=== PATIENT | female | born 1985 | race Caucasian/White ===

== ENCOUNTER 2020-06-15 10:04 | Outpatient (REF) | payer OTHER, SELFPAY | END 2020-06-15 10:05 | disposition home or self-care (01) | LOC: HO.LAB 10:04 | PROVIDERS: PCP Internal Medicine; Visit Provider Internal Medicine | DX: Z20.828 Contact with and (suspected) exposure to other viral communicable diseases (principal) | CPT/HCPCS: C9803; U0003 ==

== ENCOUNTER 2020-07-02 14:53 | Outpatient (REF) | payer OTHER, SELFPAY | END 2020-07-02 14:54 | disposition home or self-care (01) | LOC: HO.LAB 14:53 | PROVIDERS: Visit Provider Internal Medicine | DX: Z20.828 Contact with and (suspected) exposure to other viral communicable diseases (principal) | CPT/HCPCS: C9803; U0003 ==

== ENCOUNTER 2020-09-05 11:14 | Emergency (ER) | payer OTHER, SELFPAY ==
[2020-09-05 11:36] VITALS: PULSE 82; RESP 18; TEMP 36.6; O2SAT 98; BMI 36.6
--- NOTE | 2020-09-05 11:47 | PC.NURSE ---
PT REPORTS PAIN IS IN LEFT ARM FROM FINGERTIPS TO SHOULDER, +NUMBNESS/TINGLING, +RADIAL PULSE, DENIES INJURY, STATES SHE WOKE UP THURSDAY NIGHT WITH PAIN, NO KNOWN PRECIPITATING FACTORS
[2020-09-05 11:49] VITALS: PULSE 81
[2020-09-05 11:51] VITALS: BP 149/93; PULSE 81
--- NOTE | 2020-09-05 12:25 | ED.EXTPRO ---
HPI - Extremity Problem General Chief complaint: Extremity Problem Stated complaint: left arm pain, numbness Time Seen by Provider: 09/05/20 12:05 Source: patient Mode of arrival: ambulatory Limitations: no limitations History of Present Illness HPI Narrative: 35-year-old female who reports history of cholecystectomy, tubal ligation, peritonsillar abscess in the past otherwise no current medical problem not currently taking any medications she presents today with complaint of 3 days of left arm numbness states she is having pain on the left side neck that radiates down to the left arm. States has pain in the shoulder mostly without any overt known injury. Denies any headache. No recent changes in lifestyle. Denies any prior history of this. MD Complaint: other (Numbness) Onset (ago): day(s) Pain Consistency: intermittent Location: left Quality: other (Aching numbness) Radiation: proximal and distal Exacerbating factors: nothing Associated symptoms: denies other symptoms Context: other (Denies immobilization, recent surgery, DVT history, PVD, recent illness, gout. ) Related Data Allergies Allergy/AdvReac Type Severity Reaction Status Date / Time Environmental Allergy Unknown Unverified 01/05/20 00:00 No Known Allergies Allergy Unverified 03/22/20 16:20 Review of Systems Review of Systems: Constitutional: No Weight loss, No Fever, No Chills, No Night Sweats, No Fatigue, No Malaise ENT/Mouth: No Hearing loss, No Ear Pain, No Nasal Congestion, No Sinus Pain, No Hoarseness, No sore throat, No Rhinorrhea, No Swallowing Difficulty Eyes: No Eye Pain, No Swelling, No Redness, No Foreign Body, No Discharge, No Vision Changes Cardiovascular: No Chest Pain, No SOB, No Dyspnea on Exertion, No Orthopnea, No Edema, No Palpitations Respiratory: No Cough, No Sputum, No Wheezing, No Smoke Exposure, No Dyspnea Gastrointestinal: No Nausea, No Vomiting, No Diarrhea, No Constipation, No abdominal Pain, No Hematochezia, No Melena Genitourinary: No Dysuria, No Urinary Frequency, No Hematuria, No Urinary Incontinence, No Urgency, No Flank Pain, No Urinary Flow Changes, No Hesitancy Musculoskeletal: No joint pain, No Myalgias, No Joint Swelling Skin: No Skin Lesions, No rash Neuro: No Weakness, left side arm paresthesias as noted per HPI, no weakness or numbness, No Loss of Consciousness, No Dizziness, No Headache Psych: No Social Issues Heme/Lymph: No Bruising, No Bleeding,No Lymphadenopathy Endocrine: No Polyuria, No Polydipsia, No Temperature Intolerance Yes all other systems are reviewed and are negative Neurologic: Reports Abnormal speech present [facility] Social History Social History Advance Directives: No Advance Directives Information Provided: No Physical Exam Vital Signs: Vital Signs: Last Vital Signs Temp 98 F 09/05/20 11:36 Pulse 81 09/05/20 11:51 Resp 18 09/05/20 11:36 BP 149/93 H 09/05/20 11:51 Pulse Ox 98 09/05/20 11:36 Body Mass Index 36.6 Reviewed Const: General: cooperative and healthy appearing; No acute distress or intoxicated appearing Nutritional Appearance: average body habitus Orientation/consciousness: patient oriented x3 HENMT: Head: Yes normal to inspection Ears: hearing grossly normal bilaterally Eyes: General: appearance normal, both eyes and all related structures Visual Sorenson: normal visual sorenson by confrontation Neck: Other: Negative Spurling test Neck: Yes normal visual inspection, Yes no meningeal signs, No positive Brudzinski's sign, No positive Kernig's sign, Yes tender (Left-sided cervical paraspinal muscle slight tender palpation.), Yes no JVD and Yes other (No rash, swelling, ecchymoses.) Thyroid: Thyroid normal Carotids: normal carotid upstroke Lymphatic: no lymphadenopathy noted Chest: Chest palpation & inspection: normal inspection of the chest Resp: Effort & Inspection: normal respiratory effort Auscultation: clear to auscultation bilaterally Cardio: Jugular venous distension: no JVD Rate: regular rate Rhythm: regular rhythm Heart sounds: S1 normal heart sound present and S2 normal heart sound present GI: Inspection: Yes normal to inspection Percussion: Yes normal to percussion Auscultation: normal bowel sounds : General: Yes no CVA tenderness Back/Spine/Pelvis: Back: no CVA tenderness Skin: General skin exam: no rashes or lesions noted Lesions: no lesions Rashes: no rashes Trauma: no lacerations or abrasions Wounds: no wounds Hair: normal Nails: normal Neuro: General: patient oriented x3, moves all extremities, Normal light touch and pain sensation, no meningeal signs, no focal motor deficits and CN's II-XI intact bilaterally Cranial nerves: Yes CN's II-XII intact bilaterally, Yes Facial sensation intact/muscles of mastication intact and Yes Midline tongue present Cognition (Neuro): normal cognition Speech: Abnormal speech present Gait exam (Neuro): Normal gait present Motor exam (neuro): 5/5 motor strength present throughout, Pronator motor function not present, no tremor noted, no asterixis, Motor fasciculations not present and Normal motor muscle tone present throughout Sensory Exam: Normal double simultaneous stimulation for sensation Extrem: Other: Left upper extremity strengths bilaterally within normal limits. Pulses within normal limits. Sensation within normal limits. Has subjective radiation of numbness from shoulder down to the arm. General: Yes normal to inspection Right upper extremity: full ROM Left upper extremity: full ROM Course Course Course Narrative: Directly after HPI and examination I started to have a discussion with the patient of differential diagnosis; she seemed in somewhat of a hostile mood prior to my arrival at bedside however after my examination she seemed more upset and briefly into my discussion with her about the differential diagnosis and findings that are suggestive of cervical radiculopathy she started put her on jacket and stated not taking medications can I just be discharged. States are not waiting and proceeded to walk out. I tried to ask the patient why which she upset and is hearing the neck in due for her she did not offer explanation and walked out. I informed the charge nurse of the patient walking out after my examination. MDM - Extremity (Nontraumatic) Differential Diagnosis Differential diagnosis: Likely deep venous thrombosis of upper extremity and deep vein thrombosis of lower extremity (Myofascial pain, cervical radiculopathy, CVA less likely.); Unlikely gout, cellulitis and superficial thrombophlebitis Discharge Plan Discharge Clinical Impression: Cervical radiculopathy Patient Disposition: Elopement
--- NOTE | 2020-09-05 12:43 | PC.NURSE ---
pt not found at bedside
== END 2020-09-05 12:43 | disposition left against medical advice (07) ==
PROVIDERS: Emergency Provider Emergency Medicine; PCP Internal Medicine
DX: M54.12 Radiculopathy, cervical region (principal); M54.2 Cervicalgia; M79.602 Pain in left arm
CPT/HCPCS: 99283

== ENCOUNTER 2020-10-15 15:21 | Outpatient (REF) | payer OTHER, SELFPAY | END 2020-10-15 15:22 | disposition home or self-care (01) | LOC: HO.LAB 15:21 | PROVIDERS: Visit Provider Internal Medicine | DX: Z20.822 Contact with and (suspected) exposure to COVID-19 (principal) | CPT/HCPCS: C9803; U0003; U0005 ==

== ENCOUNTER 2020-11-06 10:31 | Outpatient (REF) | payer OTHER, SELFPAY ==
[2020-11-06 11:24] LABS: MANUAL DIFF FLAG NO
[2020-11-06 11:29] LABS: Basophils Percent Auto 0.5 % (0-2); Eosinophils Absolute Auto 0.1 X10*3/uL (0.0-0.4); Eosinophils Percent Auto 1.3 % (0-4); Hematocrit 40.7 % (37-47); Hemoglobin 12.4 g/dl (12.0-16.0); Imm Gran Abs Auto 0.04 X10*3/uL (0.00-0.03); Imm Gran Pct Auto 0.5 % (0.0-0.4); Lymphocytes Absolute Auto 2.1 X10*3/uL (1.2-4.9); Lymphocytes Percent Auto 25.4 % (20-40); Mean Corpuscular HGB Conc 30.5 g/dl (31.0-35.0); Mean Corpuscular Hemoglobin 24.1 pg (27.0-33.0); Monocytes Absolute Auto 0.5 X10*3/uL (0.1-1.2); Monocytes Percent Auto 5.7 % (2-11); Neutrophils Absolute Auto 5.5 X10*3/uL (2.0-8.3); Neutrophils Percent Auto 66.6 % (45-73); Platelet Count 353 X10*3/uL (160-400); Red Blood Count 5.15 X10*6/uL (4.20-5.50); White Blood Count 8.2 X10*3/uL (4.8-10.8)
[2020-11-06 12:05] LABS: Alanine Aminotransferase 19 U/L (0-31); Albumin Level 4.3 g/dL (3.5-5.0); Alkaline Phosphatase 69 U/L (39-117); Anion Gap 13 (12-20); Aspartate Amino Transferase 18 U/L (5-31); Bilirubin Total 0.3 mg/dL (0.0-1.0); Blood Urea Nitrogen 8 mg/dL (9-16); Calcium 8.6 mg/dL (8.4-10.2); Carbon Dioxide 25 mmol/L (22-29); Chloride 108 mmol/L (96-108); Estimated Glomerular Filt Rate > 60; Glucose Random 89 mg/dL (60-115); Potassium 3.9 mmol/L (3.3-5.1); Sodium 142 mmol/L (135-145); Total Protein 6.9 g/dL (6.5-8.0)
== END 2020-11-06 10:32 | disposition home or self-care (01) ==
LOC: HO.HMGCLDS 10:31
PROVIDERS: PCP Internal Medicine; Visit Provider Internal Medicine
DX: Z01.818 Encounter for other preprocedural examination (principal); E66.9 Obesity, unspecified; H33.20 Serous retinal detachment, unspecified eye
CPT/HCPCS: 36415; 80053; 85025

== ENCOUNTER 2021-04-01 17:04 | Outpatient (REF) | payer OTHER, SELFPAY | END 2021-04-01 17:05 | disposition home or self-care (01) | LOC: HO.LNP 17:04 | PROVIDERS: Visit Provider Physician Assistant Medical | DX: N39.0 Urinary tract infection, site not specified (principal) | CPT/HCPCS: 87086 ==

== ENCOUNTER 2021-04-16 11:40 | Outpatient (REF) | payer OTHER, SELFPAY ==
[2021-04-17 13:52] LABS: CT PCR NOT DETECTED (Not Detect.); NG PCR NOT DETECTED (Not Detect.)
[2021-04-18 08:39] LABS: BV Int Neg Control Negative (Negative); BV Int Pos Control Positive (Positive)
[2021-04-20 01:11] LABS: HPV mRNA E6/E7 rflx Not Detected (Not Detected)
== END 2021-04-16 11:41 | disposition home or self-care (01) ==
LOC: HO.LAB 11:40
PROVIDERS: Visit Provider Advanced Practice Midwife
DX: Z01.411 Encounter for gynecological examination (general) (routine) with abnormal findings (principal); Z11.51 Encounter for screening for human papillomavirus (HPV); N92.0 Excessive and frequent menstruation with regular cycle; E66.9 Obesity, unspecified; Z68.38 Body mass index [BMI] 38.0-38.9, adult; Z87.42 Personal history of other diseases of the female genital tract; Z20.2 Contact with and (suspected) exposure to infections with a predominantly sexual mode of transmission
CPT/HCPCS: 87480; 87491; 87510; 87591; 87624; 87660; 88142

== ENCOUNTER 2021-05-09 13:04 | Outpatient (REF) | payer OTHER, SELFPAY ==
--- NOTE | ~2021-05-09 | US_ITS ---
EXAMINATION: US PELVIS CLINICAL INFORMATION: Excessive and frequent menstruation COMPARISON: None TECHNIQUE: Ultrasound of the pelvis is performed using both transabdominal and transvaginal transducers along with Doppler. Transvaginal imaging is performed due to inadequate visualization transabdominally. FINDINGS: The uterus is anteverted and measures 7.7 x 4.6 x 5.2 cm in dimension. No focal uterine lesion is seen. Endometrial thickness is normal measuring 1 cm. The cervix is normal. The ovaries are normal. The right ovary measures 3.8 x 2 x 2.3 cm. The left ovary measures 2.6 x 2.1 x 1.6 cm. There is no fluid in the pelvis. US/US pelvic and transvaginal IMPRESSION: Normal pelvic ultrasound.
== END 2021-05-09 13:05 | disposition home or self-care (01) ==
LOC: HO.US 13:04
PROVIDERS: Visit Provider Advanced Practice Midwife
DX: N92.0 Excessive and frequent menstruation with regular cycle (principal); E66.9 Obesity, unspecified
CPT/HCPCS: 76830; 76856

== ENCOUNTER → 2021-06-13 14:45 | Outpatient (BNVA) | payer OTHER, SELFPAY | PROVIDERS: Visit Provider Advanced Practice Midwife | DX: N92.0 Excessive and frequent menstruation with regular cycle (principal) | CPT/HCPCS: Q3014 ==

== ENCOUNTER 2021-07-16 11:02 | Outpatient (REF) | payer OTHER, SELFPAY ==
[2021-07-16 13:16] LABS: Binax Internal Control QC Valid; Binax Now Covid-19 Ag Negative (Negative)
== END 2021-07-16 11:03 | disposition home or self-care (01) ==
LOC: HO.LAB 11:02
PROVIDERS: Visit Provider Internal Medicine
DX: Z20.822 Contact with and (suspected) exposure to COVID-19 (principal)
CPT/HCPCS: C9803

== ENCOUNTER 2022-01-13 11:26 | Outpatient (REF) | payer OTHER, SELFPAY ==
[2022-01-13 14:01] LABS: Hematocrit 39.1 % (37.0-47.0); Hemoglobin 12.1 g/dl (12.0-16.0); Mean Corpuscular HGB Conc 30.9 g/dl (31.0-35.0); Mean Corpuscular Hemoglobin 23.9 pg (27.0-33.0); Mean Corpuscular Volume 77.3 fL (80.0-98.0); Mean Platelet Volume 9.8 fL (9.4-12.3); Platelet Count 438 X10*3/uL (160-400); Red Blood Count 5.06 X10*6/uL (4.20-5.50); Red Cell Distribution Width 15.9 % (11.0-16.0); White Blood Count 10.7 X10*3/uL (4.8-10.8)
[2022-01-13 14:16] LABS: Alanine Aminotransferase 26 U/L (0-31); Albumin Level 4.4 g/dL (3.5-5.0); Alkaline Phosphatase 70 U/L (39-117); Amylase 30 U/L (28-100); Anion Gap 12 (12-20); Aspartate Amino Transferase 15 U/L (5-31); Bilirubin Direct 0.2 mg/dL (0.0-0.5); Bilirubin Total 0.3 mg/dL (0.0-1.0); Blood Urea Nitrogen 11 mg/dL (9-16); Carbon Dioxide 23 mmol/L (22-29); Chloride 107 mmol/L (96-108); Estimated Glomerular Filt Rate > 60; Glucose Random 88 mg/dL (60-115); Lipase 19 U/L (8-78); Potassium 4.5 mmol/L (3.3-5.1); Sodium 137 mmol/L (135-145); Total Protein 6.9 g/dL (6.5-8.0)
== END 2022-01-13 11:27 | disposition home or self-care (01) ==
LOC: HO.HMGCLDS 11:26
PROVIDERS: PCP Internal Medicine; Visit Provider Internal Medicine
DX: K29.70 Gastritis, unspecified, without bleeding (principal)
CPT/HCPCS: 36415; 80048; 80076; 82150; 83690; 85027

== ENCOUNTER 2022-02-08 13:23 | Emergency (ER) | payer OTHER, SELFPAY ==
[2022-02-08 13:30] VITALS: BP 167/102; PULSE 79; RESP 16; TEMP 36.8; O2SAT 99; BMI 36.6
[2022-02-08] MEDS: Diphth,Pertus(ACell),Tet Adult 0.5 ML SYRINGE IM (14:09)
--- NOTE | 2022-02-08 14:11 | ED_ITS ---
HPI - Wound/Laceration General Chief Complaint: Wound/Laceration Stated Complaint: Finger Lac Work Injury 02/08/22 Time Seen by Provider: 02/08/22 14:01 History of Present Illness HPI narrative: Patient complains of left index finger laceration at work, no numbness no weakness or tingling no other injury Related Data Previous Rx's Medication Instructions Recorded meloxicam 15 mg tablet 15 mg PO DAILY #14 tabs 12/11/21 Allergies Allergy/AdvReac Type Severity Reaction Status Date / Time Environmental Allergy Unknown Itchy Eyes Unverified 01/13/22 10:23 No Known Allergies Allergy Unverified 01/13/22 10:23 Review of Systems Review of Systems: Positive for left index finger last Negatives are no headache no neck pain no chest pain no numbness no weakness no tingling no loss of sensation no other injuries Yes all other systems are reviewed and are negative [facility] Past Medical History Source: nursing notes reviewed Surgical History History of bilateral tubal ligation Hx of tonsillectomy Family History Family History Father HTN (hypertension) Mother HTN (hypertension) Social History Social History Alcohol intake: current Alcohol intake frequency: holidays/special occasions only Patient Tobacco Use Status: Current everyday Tobacco user Cigarettes Per Day: 10 Advance Directives: No Advance Directives Information Provided: No Gender identity: Female Physical Exam Vital Signs: Vital Signs: Last Vital Signs Temp 98.2 F 02/08/22 13:30 Pulse 79 02/08/22 13:30 Resp 16 02/08/22 13:30 BP 167/102 H 02/08/22 13:30 Pulse Ox 99 02/08/22 13:30 O2 Del Method 02/08/22 13:30 BMI result Body Mass Index 36.6 General appearance no distress Head is normocephalic atraumatic Neck is supple Respiratory no distress Extremities full range of motion x4 Left index finger the distal dorsal finger lateral to the nail bed has a 0.5 cm superficial laceration, otherwise neurovascular intact distal with full range of motion in all joints no evidence of any tendon injury Other extremities normal Course Course Course Narrative: Superficial left index finger laceration is cleansed and irrigated with normal saline and closed with Steri-Strips Patient did get a tetanus shot Discharge Plan Discharge Clinical Impression: Finger laceration Patient Disposition: Home, Self-Care Additional Instructions: We gave a tetanus shot We put some tape over the wound but you did not need stitches You can remove the tape in 2-3 days Return any time for redness swelling any sign of infection If not better follow with [facility] Thursday Prescriptions: No Action meloxicam 15 mg tablet 15 mg PO DAILY Qty: 14 0RF Referrals: [facility] [Provider Group] (Left index finger laceration) Interventions: ED Discharge Assessment Last Done: 02/08/22 14:20 Discharge Date/Time: 02/08/22 14:24
== END 2022-02-08 14:24 | disposition home or self-care (01) ==
PROVIDERS: Emergency Provider Emergency Medicine; PCP Nurse Practitioner Family
DX: S61.211A Laceration without foreign body of left index finger without damage to nail, initial encounter (principal); W26.0XXA Contact with knife, initial encounter; Y93.G1 Activity, food preparation and clean up; Y92.511 Restaurant or cafe as the place of occurrence of the external cause; Y99.0 Civilian activity done for income or pay
CPT/HCPCS: 90471; 90715; 99282; 99284

== ENCOUNTER 2022-02-16 09:30 | Emergency (ER) | payer OTHER, SELFPAY ==
--- NOTE | ~2022-02-16 | XR_ITS ---
EXAMINATION: XR CHEST CLINICAL INFORMATION: Chest pain COMPARISON: Chest x-ray 11/06/2016 TECHNIQUE: Frontal view of the chest was obtained. FINDINGS: No significant abnormality is noted involving the heart, lungs, mediastinum, bony thorax or soft tissues. XR/XR chest 1V IMPRESSION: No acute disease within the chest. No focal consolidation.
--- NOTE | 2022-02-16 09:43 | ECG_ITS ---
Test Reason : cp Blood Pressure : / mmHG Vent. Rate : 070 BPM Atrial Rate : 070 BPM P-R Int : 130 ms QRS Dur : 082 ms QT Int : 394 ms P-R-T Axes : 011 020 010 degrees QTc Int : 425 ms Normal sinus rhythm with sinus arrhythmia Normal ECG When compared with ECG of 06-NOV-2016 11:19, No significant change was found Referred By: Generic ED Physician Electronically Signed By:JUAQUIN PATINO
[2022-02-16 10:06] VITALS: BP 159/96; PULSE 80; RESP 16; TEMP 36.5; O2SAT 99; BMI 36.6
[2022-02-16 10:21] LABS: MANUAL DIFF FLAG NO
[2022-02-16 10:23] LABS: Basophils Percent Auto 0.5 % (0-2); Eosinophils Absolute Auto 0.1 X10*3/uL (0.0-0.4); Hematocrit 38.3 % (37.0-47.0); Hemoglobin 11.8 g/dl (12.0-16.0); Imm Gran Abs Auto 0.02 X10*3/uL (0.00-0.03); Imm Gran Pct Auto 0.2 % (0.0-0.4); Lymphocytes Absolute Auto 2.5 X10*3/uL (1.2-4.9); Lymphocytes Percent Auto 29.9 % (20-40); Mean Corpuscular HGB Conc 30.8 g/dl (31.0-35.0); Mean Corpuscular Volume 77.8 fL (80.0-98.0); Mean Platelet Volume 9.6 fL (9.4-12.3); Monocytes Absolute Auto 0.6 X10*3/uL (0.1-1.2); Monocytes Percent Auto 6.7 % (2-11); Neutrophils Absolute Auto 5.2 x10*3/uL (2.0-8.3); Neutrophils Percent Auto 61.7 % (45-73); Platelet Count 377 X10*3/uL (160-400); Red Blood Count 4.92 X10*6/uL (4.20-5.50); Red Cell Distribution Width 16.3 % (11.0-16.0); White Blood Count 8.4 X10*3/uL (4.8-10.8)
[2022-02-16 10:38] LABS: Anion Gap 15 (12-20); Blood Urea Nitrogen 8 mg/dL (9-16); Calcium 8.5 mg/dL (8.4-10.2); Carbon Dioxide 24 mmol/L (22-29); Chloride 108 mmol/L (96-108); Creatinine Clr Calc Pharmacy 147.1; Estimated Glomerular Filt Rate > 60; Glucose Random 95 mg/dL (60-115); Potassium 4.8 mmol/L (3.3-5.1); Sodium 142 mmol/L (135-145)
[2022-02-16 10:46] LABS: Troponin-I High Sensitivity < 3.5 ng/L (<3.5-17.0)
[2022-02-16 12:12] VITALS: BP 167/93; PULSE 77; RESP 19; O2SAT 100
--- NOTE | 2022-02-16 14:20 | ED_ITS ---
HPI - General Adult General Chief complaint: General Medical Stated complaint: Chest pain/Dizziness Time Seen by Provider: 02/16/22 14:18 Source: patient Mode of arrival: ambulatory History of Present Illness HPI narrative: 36-year-old female with no significant past medical history presenting to the ED complaining of lightheadedness, intermittent CP x4 days, nausea, elevated BP at home. Also reports acute on chronic headache unchanged from typical migraines. Denies exacerbating/alleviating factors of CP. Denies cough, fever, SOB, abdominal pain, vomiting, pedal edema, recent travel, sick contacts, vision change/loss, neck pain. LMP now Onset (ago): day(s) Related Data Previous Rx's Medication Instructions Recorded meloxicam 15 mg tablet 15 mg PO DAILY #14 tabs 12/11/21 Allergies Allergy/AdvReac Type Severity Reaction Status Date / Time Environmental Allergy Unknown Itchy Eyes Verified 02/16/22 10:06 No Known Allergies Allergy Verified 02/16/22 10:06 Review of Systems Review of Systems: Constitutional: No Fever, No Chills, No Fatigue, No Malaise ENT/Mouth: No Ear Pain, No Nasal Congestion, No Sinus Pain, No Hoarseness, No sore throat, No Rhinorrhea, No Swallowing Difficulty Eyes: No Eye Pain, No Swelling, No Redness, No Discharge, No Vision Changes Cardiovascular: + intermittent Chest Pain, No SOB, No Dyspnea on Exertion, No Orthopnea, No Edema, No Palpitations Respiratory: No Cough, No Sputum, No Wheezing, No Smoke Exposure, No Dyspnea Gastrointestinal: + Nausea, No Vomiting, No Diarrhea, No Constipation, No Abdominal pain Genitourinary: No Dysuria, No Urinary Frequency, No Hematuria, No Urinary Incontinence/retention, No Flank Pain Musculoskeletal: No joint pain, No Myalgias, No Joint Swelling Skin: No Skin Lesions, No rash Neuro: No Weakness, No Numbness, No Paresthesias, No Loss of Consciousness, + lightheadedness, + Headache Yes all other systems are reviewed and are negative Constitutional: Constitutional: Reports as per HPI Neurologic: Denies Abnormal speech present [facility] Past Medical History Attestation statement: The following information was validated with the patient. Surgical History History of bilateral tubal ligation Hx of tonsillectomy Family History Family History Father HTN (hypertension) Mother HTN (hypertension) Social History Social History Alcohol intake: current Alcohol intake frequency: holidays/special occasions only Patient Tobacco Use Status: Current everyday Tobacco user Cigarettes Per Day: 10 Advance Directives: No Advance Directives Information Provided: Yes Gender identity: Female Physical Exam ED Vital Signs: Vital Signs - 24 hr 02/16/22 10:06 02/16/22 12:12 02/16/22 14:24 Temperature 97.7 F Pulse Rate 80 77 64 Respiratory Rate 16 19 18 Blood Pressure 159/96 H 167/93 H 145/86 H Pulse Oximetry 99 100 100 Oxygen Delivery Method Room Air Room Air Room Air 02/16/22 14:55 Temperature Pulse Rate 65 Respiratory Rate Blood Pressure 167/99 H Pulse Oximetry Oxygen Delivery Method BMI result Body Mass Index 36.6 Const General: cooperative, healthy appearing, no acute distress, alert, awake and Physically active Orientation/consciousness: patient oriented x3 Limitations: no limitations HENMT Head: Yes normal to inspection and Yes atraumatic Ears: hearing grossly normal bilaterally General nose exam: Normal external nose present Face and sinus: Yes normal facial exam Eyes General: appearance normal, both eyes and all related structures Pupils: Equal, round and reactive pupils present EOM: EOMs intact bilaterally Neck Neck: Yes normal visual inspection and Yes no meningeal signs Resp Effort & Inspection: normal respiratory effort and no respiratory distress Auscultation: clear to auscultation bilaterally, no crackles, no rales, no rhonchi and no wheezes Cardio Rate: regular rate Heart sounds: S1 normal heart sound present and S2 normal heart sound present GI Inspection: Yes normal to inspection Palpation (GI): Soft to palpation, nontender, no guarding and not rigid General: Yes no CVA tenderness Back/Spine/Pelvis Back: no CVA tenderness Skin Rashes: no rashes Wounds: no wounds Neuro General: patient oriented x3, gait normal, tone normal, moves all extremities, no meningeal signs, no focal motor deficits and CN's II-XI intact bilaterally Cranial nerves: Yes CN's II-XII intact bilaterally, Yes Equal, round and reactive pupils present and Yes Bilaterally intact EOM present Cognition (Neuro): normal cognition Speech: No Abnormal speech present Gait exam (Neuro): Normal gait present Motor exam (neuro): 5/5 motor strength present throughout, Pronator motor function not present and no tremor noted Extrem General: Yes normal to inspection, Yes no pedal edema and Yes no calf tenderness Course Course Course Narrative: -1519--labs unremarkable. Initial troponin negative. -UA not infected, 3+ blood likely from menstruation. COVID-19 negative XR chest 1V IMPRESSION: No acute disease within the chest. No focal consolidation. -orthostatic vital signs negative -1634--repeat troponin equivocal, [place] unlikely Results discussed with patient including worrisome signs and symptoms and strict return precautions, and when to return to the emergency department. They verbalized understanding and feel safe for discharge at this time. Medical Decision Making MDM Narrative Medical decision making narrative: 36-year-old female with no significant past medical history presenting to the ED complaining of lightheadedness, intermittent CP x4 days, nausea, elevated BP at home. Also reports acute on chronic headache unchanged from typical migraines. On exam mildly hypertensive, NAD, nontoxic appearing, lungs CTA, no focal neuro deficits. Symptoms atypical for ACS. Concern for viral illness vs metabolic abnormalities. Rule out . Low suspicion for PE/CHF/pneumonia or hypertensive urgency/emergency. Low suspicion for ICH Plan: EKG, labs, UA, CXR, COVID-19 testing, PO Fioricet, re-evaluate Lab Data Result diagrams: 02/16/22 10:16 02/16/22 10:16 Labs: Lab Results 02/16/22 02/16/22 02/16/22 Range/Units 10:16 10:16 10:16 WBC 8.4 (4.8-10.8) X10*3/uL RBC 4.92 (4.20-5.50) X10*6/uL Hgb 11.8 L (12.0-16.0) g/dl Hct 38.3 (37.0-47.0) % MCV 77.8 L (80.0-98.0) fL MCH 24.0 L (27.0-33.0) pg MCHC 30.8 L (31.0-35.0) g/dl RDW 16.3 H (11.0-16.0) % Plt Count 377 (160-400) X10*3/uL MPV 9.6 (9.4-12.3) fL Immature Gran % (Auto) 0.2 (0.0-0.4) % Neut % (Auto) 61.7 (45-73) % Lymph % (Auto) 29.9 (20-40) % [place] % (Auto) 6.7 (2-11) % Eos % (Auto) 1.0 (0-4) % Baso % (Auto) 0.5 (0-2) % Lymph # (Auto) 2.5 (1.2-4.9) X10*3/uL [place] # (Auto) 0.6 (0.1-1.2) X10*3/uL Eos # (Auto) 0.1 (0.0-0.4) X10*3/uL Baso # (Auto) 0.0 (0.0-0.2) X10*3/uL Abs Immat Gran (auto) 0.02 (0.00-0.03) X10*3/uL Absolute Neuts (auto) 5.2 (2.0-8.3) x10*3/uL Absolute Nucleated RBC 0.000 (0.0-0.012) X10*3/uL Nucleated RBC % (auto) 0.0 (0.0-0.2) /100WBC Sodium 142 (135-145) mmol/L Potassium 4.8 (3.3-5.1) mmol/L Chloride 108 (96-108) mmol/L Carbon Dioxide 24 (22-29) mmol/L Anion Gap 15 (12-20) BUN 8 L (9-16) mg/dL Creatinine 0.63 (0.5-1.4) mg/dL Estim Creat Clear Calc 147.1 Estimated GFR > 60 Random Glucose 95 (60-115) mg/dL Calcium 8.5 (8.4-10.2) mg/dL Magnesium 1.9 (1.6-2.6) mg/dL Total Bilirubin 0.3 (0.0-1.0) mg/dL Direct Bilirubin < 0.2 (0.0-0.5) mg/dL AST 15 (5-31) U/L ALT 18 (0-31) U/L Alkaline Phosphatase 71 (39-117) U/L Troponin I High Sens < 3.5 (<3.5-17.0) ng/L Total Protein 6.7 (6.5-8.0) g/dL Albumin 4.2 (3.5-5.0) g/dL Beta HCG, Quant < 2 mIU/mL Urine Color Urine Appearance Urine pH (5.0-8.0) Ur Specific Gautier (1.005-1.025) Urine Protein (NEG-TRACE) MG/DL Urine Glucose (UA) (NEG) MG/DL Urine Ketones (NEG) MG/DL Urine Blood (NEG) Urine Nitrite (NEG) Ur Leukocyte Esterase (NEG) Urine RBC (0) /HPF Urine WBC (0-4) /HPF Ur Squamous Epith Cells /LPF Urine Bacteria /LPF Urine Mucus /LPF COVID-19 ([facility]) (Negative) COVID-19 Clin Com 02/16/22 02/16/22 02/16/22 Range/Units 14:48 14:48 Unknown WBC (4.8-10.8) X10*3/uL RBC (4.20-5.50) X10*6/uL Hgb (12.0-16.0) g/dl Hct (37.0-47.0) % MCV (80.0-98.0) fL MCH (27.0-33.0) pg MCHC (31.0-35.0) g/dl RDW (11.0-16.0) % Plt Count (160-400) X10*3/uL MPV (9.4-12.3) fL Immature Gran % (Auto) (0.0-0.4) % Neut % (Auto) (45-73) % Lymph % (Auto) (20-40) % [place] % (Auto) (2-11) % Eos % (Auto) (0-4) % Baso % (Auto) (0-2) % Lymph # (Auto) (1.2-4.9) X10*3/uL [place] # (Auto) (0.1-1.2) X10*3/uL Eos # (Auto) (0.0-0.4) X10*3/uL Baso # (Auto) (0.0-0.2) X10*3/uL Abs Immat Gran (auto) (0.00-0.03) X10*3/uL Absolute Neuts (auto) (2.0-8.3) x10*3/uL Absolute Nucleated RBC (0.0-0.012) X10*3/uL Nucleated RBC % (auto) (0.0-0.2) /100WBC Sodium (135-145) mmol/L Potassium (3.3-5.1) mmol/L Chloride (96-108) mmol/L Carbon Dioxide (22-29) mmol/L Anion Gap (12-20) BUN (9-16) mg/dL Creatinine (0.5-1.4) mg/dL Estim Creat Clear Calc Estimated GFR Random Glucose (60-115) mg/dL Calcium (8.4-10.2) mg/dL Magnesium (1.6-2.6) mg/dL Total Bilirubin (0.0-1.0) mg/dL Direct Bilirubin (0.0-0.5) mg/dL AST (5-31) U/L ALT (0-31) U/L Alkaline Phosphatase (39-117) U/L Troponin I High Sens < 3.5 (<3.5-17.0) ng/L Total Protein (6.5-8.0) g/dL Albumin (3.5-5.0) g/dL Beta HCG, Quant mIU/mL Urine Color YELLOW Urine Appearance CLEAR Urine pH 5.5 (5.0-8.0) Ur Specific Gautier >= 1.030 H (1.005-1.025) Urine Protein NEG (NEG-TRACE) MG/DL Urine Glucose (UA) NEG (NEG) MG/DL Urine Ketones NEG (NEG) MG/DL Urine Blood 3+ H (NEG) Urine Nitrite NEG (NEG) Ur Leukocyte Esterase TRACE H (NEG) Urine RBC 1-4 (0) /HPF Urine WBC 1-4 (0-4) /HPF Ur Squamous Epith Cells 2+ /LPF Urine Bacteria TRACE /LPF Urine Mucus 2+ /LPF COVID-19 ([facility]) Negative (Negative) COVID-19 Clin Com See Note ECG Data Attestation: I personally reviewed and interpreted this ECG as follows: Interpretation: EKG normal sinus rhythm with sinus arrhythmia at a rate of 70. QRS 82. QTC 425. No significant change when compared to prior EKGs. Discharge Plan Discharge Clinical Impression: Atypical chest pain, Lightheadedness, Nausea Patient Disposition: Home, Self-Care Instructions: Lightheadedness (ED), Noncardiac Chest Pain (ED) Additional Instructions: Your blood work and chest x-ray were reassuring today in the emergency department. Make sure you follow-up with her primary care doctor. If symptoms persist or worsen, chest pain becomes constant, and shortness of breath, fever, or feel like you are going to pass out was return to the emergency department. X-ray stay hydrated at home Prescriptions: No Action meloxicam 15 mg tablet 15 mg PO DAILY Qty: 14 0RF Referrals: Cody Weller, [employer]CH[employer]ICIAN[facility] [Primary Care Provider] - 5 days
[2022-02-16 14:24] VITALS: BP 145/86; PULSE 64; RESP 18; O2SAT 100
[2022-02-16 14:49] LABS: Alanine Aminotransferase 18 U/L (0-31); Albumin Level 4.2 g/dL (3.5-5.0); Alkaline Phosphatase 71 U/L (39-117); Aspartate Amino Transferase 15 U/L (5-31); Bilirubin Direct < 0.2 mg/dL (0.0-0.5); Bilirubin Total 0.3 mg/dL (0.0-1.0); Magnesium 1.9 mg/dL (1.6-2.6); Total Protein 6.7 g/dL (6.5-8.0)
[2022-02-16 14:55] VITALS: BP 167/99; PULSE 65
[2022-02-16 14:55] LABS: HCG Quantitative < 2 mIU/mL
[2022-02-16 14:55] LABS: Appearance Urine CLEAR; Color Urine YELLOW; Glucose Urine UA NEG (NEG); Leukocyte Esterase Urine TRACE (NEG); Nitrite Urine NEG (NEG); PH 5.5 (5.0-8.0); Specific Gravity - Urine >= 1.030 (1.005-1.025); UACC Culture Trigger NO; Urine Blood 3+ (NEG); Urine Ketones NEG (NEG); Urine Protein NEG (NEG-TRACE)
[2022-02-16 15:10] LABS: Bacteria Urine TRACE /LPF; COVID-19 Test Negative (Negative); IDNOW Serial# 55D5AD1C; Mucus Urine 2+ /LPF; Squamous Epithelial Cell Urine 2+ /LPF
[2022-02-16] MEDS: Butalb/Acetamin/Caff 50/325/40 TABLET 1 TAB PO (15:22)
[2022-02-16 16:12] LABS: Troponin-I High Sensitivity < 3.5 ng/L (<3.5-17.0)
== END 2022-02-16 17:10 | disposition home or self-care (01) ==
PROVIDERS: Physician Assistant; Emergency Provider Student in an Organized Health Care Education/Training Program; PCP Nurse Practitioner Family
DX: R07.89 Other chest pain (principal); R42 Dizziness and giddiness; F17.210 Nicotine dependence, cigarettes, uncomplicated; Z20.822 Contact with and (suspected) exposure to COVID-19; Z71.6 Tobacco abuse counseling; Z79.899 Other long term (current) drug therapy
CPT/HCPCS: 36415; 71045; 80048; 80076; 81001; 81003; 83735; 84484; 84702; 85025; 87635; 93005; 99284

== ENCOUNTER 2022-09-26 11:16 | Outpatient (REF) | payer OTHER, SELFPAY ==
[2022-09-27 16:48] LABS: CT PCR NOT DETECTED (Not Detect.); NG PCR NOT DETECTED (Not Detect.)
[2022-09-28 13:31] LABS: BV Int Neg Control Negative (Negative); BV Int Pos Control Positive (Positive)
[2022-10-02 07:09] LABS: HPV 16 RNA NOT DETECTED (NOT DETECTED); HPV mRNA E6/E7 rflx Detected (Not Detected)
== END 2022-09-26 11:17 | disposition home or self-care (01) ==
LOC: HO.LNP 11:16
PROVIDERS: PCP Nurse Practitioner Family; Visit Provider Advanced Practice Midwife
DX: Z12.4 Encounter for screening for malignant neoplasm of cervix (principal); Z11.51 Encounter for screening for human papillomavirus (HPV); N39.0 Urinary tract infection, site not specified; Z20.2 Contact with and (suspected) exposure to infections with a predominantly sexual mode of transmission
CPT/HCPCS: 0353U; 87086; 87480; 87510; 87624; 87625; 87660; 88142

== ENCOUNTER 2022-10-04 07:20 | Outpatient (REF) | payer OTHER, SELFPAY ==
[2022-10-04 07:34] LABS: MANUAL DIFF FLAG NO
[2022-10-04 08:23] LABS: Basophils Absolute Auto 0.1 X10*3/uL (0.0-0.2); Basophils Percent Auto 0.8 % (0-2); Eosinophils Absolute Auto 0.1 X10*3/uL (0.0-0.4); Eosinophils Percent Auto 1.1 % (0-4); Hematocrit 37.9 % (37.0-47.0); Hemoglobin 11.8 g/dl (12.0-16.0); Imm Gran Abs Auto 0.03 X10*3/uL (0.00-0.03); Imm Gran Pct Auto 0.4 % (0.0-0.4); Lymphocytes Absolute Auto 2.6 X10*3/uL (1.2-4.9); Lymphocytes Percent Auto 35.8 % (20-40); Mean Corpuscular HGB Conc 31.1 g/dl (31.0-35.0); Mean Corpuscular Hemoglobin 24.4 pg (27.0-33.0); Mean Corpuscular Volume 78.3 fL (80.0-98.0); Mean Platelet Volume 10.2 fL (9.4-12.3); Monocytes Absolute Auto 0.5 X10*3/uL (0.1-1.2); Monocytes Percent Auto 7.3 % (2-11); Neutrophils Percent Auto 54.6 % (45-73); Platelet Count 398 X10*3/uL (160-400); Red Blood Count 4.84 X10*6/uL (4.20-5.50); Red Cell Distribution Width 15.3 % (11.0-16.0); White Blood Count 7.4 X10*3/uL (4.8-10.8)
[2022-10-04 08:36] LABS: Appearance Urine Clear; Color Urine Yellow; Glucose Urine UA Negative (Negative); Leukocyte Esterase Urine Moderate (2+) (Negative); Nitrite Urine Negative (Negative); UMIC TRIGGER UACC YES; Urine Blood Small (1+) (Negative); Urine Ketones Negative (Negative); Urine Protein Negative (Neg-Trace)
[2022-10-04 08:47] LABS: Bacteria Urine Trace (None Seen); Hyaline Casts Urine 0-2 /LPF (0-2); RBC Urine 0-2 /HPF (0-2); UACC Culture Trigger YES
[2022-10-04 09:11] LABS: Alanine Aminotransferase 21 U/L (0-31); Albumin Level 4.3 g/dL (3.5-5.0); Alkaline Phosphatase 76 U/L (39-117); Anion Gap 13 (12-20); Aspartate Amino Transferase 17 U/L (5-31); Bilirubin Total 0.3 mg/dL (0.0-1.0); Blood Urea Nitrogen 9 mg/dL (9-16); Calcium 8.8 mg/dL (8.4-10.2); Carbon Dioxide 24 mmol/L (22-29); Chloride 110 mmol/L (96-108); Cholesterol 174 mg/dL; Estimated Glomerular Filt Rate > 60; Glucose Fasting 92 mg/dL (60-99); HDL Cholesterol 59 mg/dL; LDL Cholesterol Calculated 104 mg/dl; Potassium 4.5 mmol/L (3.3-5.1); Sodium 142 mmol/L (135-145); Total Protein 6.6 g/dL (6.5-8.0); Triglycerides 57 mg/dL
[2022-10-04 09:32] LABS: TSH reflex Free T4 0.61 uIU/mL (0.32-4.0)
[2022-10-06 08:25] LABS: Syphilis Screen Nonreactive (Nonreactive)
[2022-10-06 08:35] LABS: HIV AB/AG Nonreactive (Nonreactive); HIV Num 1 0.06 S/CO (0.00-0.99); Hepatitis B Surface Antigen Negative (Negative); ~HepC Num1 0.08 S/CO (0.00-0.79); ~Hepatitis C Antibody Nonreactive (Nonreactive)
== END 2022-10-04 07:21 | disposition home or self-care (01) ==
LOC: HO.LAB 07:20
PROVIDERS: Absent Provider Advanced Practice Midwife; PCP Nurse Practitioner Family; Visit Provider Nurse Practitioner Family
DX: Z00.00 Encounter for general adult medical examination without abnormal findings (principal); F17.200 Nicotine dependence, unspecified, uncomplicated; R03.0 Elevated blood-pressure reading, without diagnosis of hypertension; R35.0 Frequency of micturition; Z20.2 Contact with and (suspected) exposure to infections with a predominantly sexual mode of transmission; Z87.42 Personal history of other diseases of the female genital tract; E66.01 Morbid (severe) obesity due to excess calories
CPT/HCPCS: 36415; 80053; 80061; 81001; 84443; 85025; 86780; 86803; 87086; 87340; 87389

== ENCOUNTER 2022-11-13 13:54 | Outpatient (REF) | payer OTHER, SELFPAY | END 2022-11-13 13:55 | disposition home or self-care (01) | LOC: HO.LNP 13:54 | PROVIDERS: PCP Nurse Practitioner Family; Visit Provider Obstetrics & Gynecology | DX: R87.610 Atypical squamous cells of undetermined significance on cytologic smear of cervix (ASC-US) (principal); Z87.42 Personal history of other diseases of the female genital tract | CPT/HCPCS: 57454; 81025; 88305 ==

== ENCOUNTER → 2022-11-28 08:23 | Outpatient (BNVA) | payer OTHER, SELFPAY | PROVIDERS: PCP Nurse Practitioner Family; Visit Provider Obstetrics & Gynecology | DX: R87.610 Atypical squamous cells of undetermined significance on cytologic smear of cervix (ASC-US) (principal); R87.810 Cervical high risk human papillomavirus (HPV) DNA test positive | CPT/HCPCS: 99212 ==

== ENCOUNTER 2023-01-12 09:53 | Outpatient (AMB) | payer OTHER, SELFPAY ==
[2023-01-12 10:11] VITALS: BP 118/72; PULSE 61; O2SAT 100; BMI 36.3
--- NOTE | 2023-01-12 10:11 | MHC.PC.OV ---
Vital Signs 01/12/23 10:11 Height 5 ft 5 in Weight 218 lb 6 oz BMI 36.3 BP 118/72 Blood Pressure Location Rt brachial Position Sitting Pulse 61 Pulse Source Pulse Oximeter Pulse Oximetry (%) 100 Oxygen Delivery Method Room Air Intake Visit Reasons: 6 month follow up Allergies environmental allergies Allergy (Unknown, Verified 01/12/23 10:14) Itchy Eyes Medication List - Last Reconciled 01/12/23 by KAYLA Blue No Known Home Meds Tobacco use date assessed: 07/14/22 Dental Screening Dental Screen Date: 01/12/23 Did you have a dental visit in the last 12 months?: Yes Did you have a dental problem in the last 6 months where you did not have access to dental care?: No Was dental information given to patient?: Patient has dentist HPI 6 month follow up HPI Details Pt c/o restless legs. She reports that this is worse at night. Will check labs including ferritin and iron. Denies fever, chills, and dizziness. PFS Surgical History History of bilateral tubal ligation Hx of tonsillectomy Family History Father HTN (hypertension) Mental health disorder Mother HTN (hypertension) Mental health disorder Paternal Uncle Substance use disorder Sister Mental health disorder Social History Housing: Apartment Alcohol intake: current Alcohol intake frequency: holidays/special occasions only Patient Tobacco Use Status: Current someday Tobacco user e-Cigarette/Vaping Use: Currently Using Second Hand Smoke Exposure: No service: No Current occupational status: employed Current occupation: [email or web address] Current occupational exposures/hazards: No Gender identity: Female Cognitive needs: No Hearing needs: No Vision needs: No Female Reproductive History Menstrual Age of Menarche: 14 Questionnaire Thrive Questionnaire Date Thrive assessed: 07/14/22 WILLIE-7 AMB Questionnaire WILLIE-7 Date WILLIE - 7 assessed: 07/14/22 Source: Developed by Drs. Domenico Sebastian, Ashley Rodriguez, Sharad Pacheco and colleagues, with an educational rk from [employer]. Review of Systems Const Reports as per HPI Physical exam (Primary Care) Vital Signs: Last Vital Signs Pulse 61 01/12/23 10:11 BP 118/72 01/12/23 10:11 Pulse Ox 100 01/12/23 10:11 Oxygen Delivery Method Room Air 01/12/23 10:11 BMI result Body Mass Index 36.3 Tobacco/Smoking Status: Tobacco use Status Tobacco use date assessed 07/14/22 01/12/23 10:17 Patient Tobacco Use Status Current someday Tobacco 01/12/23 10:17 e-Cigarette/Vaping Use Currently Using 01/12/23 10:17 Thrive Assessment: Date of Thrive Assessment Date Thrive assessed 07/14/22 01/12/23 10:17 Const General: cooperative Nutritional Appearance: obese Orientation/consciousness: patient oriented x3 Resp Effort & Inspection: normal respiratory effort Auscultation: clear to auscultation bilaterally Cardio Rate: regular rate Rhythm: regular rhythm Heart sounds: S1 normal heart sound present and S2 normal heart sound present Neuro General: patient oriented x3 Psych Appearance: grossly normal Mental Status: mental status grossly normal Speech and movement: Normal speech and movement present Affect: normal affect Attitude: cooperative Thought process: Normal thought process present Thought content: Normal thought content present Insight: Good insight present (Psych) Judgement: Good judgement present (Psych) Assessment and Plan Assessment & Plan (1) Restless leg syndrome: Code(s): G25.81 - Restless legs syndrome Plan: Labs ordered Plan The patient agreed to the use of a medical center director for this encounter. Scribed for JP Maciel by Loyda Newman medical center director, on 01/12/2023 at 10:30 EST. Orders: Orders Ferritin Today G25.81 - Restless legs syndrome IRON PROFILE Today G25.81 - Restless legs syndrome Complete Blood Count Auto Diff Today G25.81 - Restless legs syndrome Comprehensive Met. Panel Today G281 - Restless legs syndrome Coding Level of Care Code Est Pt Level 3 (10279) Diagnoses Restless leg syndrome G25.81
== END 2023-01-12 10:39 | disposition home or self-care (01) ==
PROVIDERS: PCP Nurse Practitioner Family; Visit Provider Nurse Practitioner Family
DX: G25.81 Restless legs syndrome (principal)
CPT/HCPCS: 99213

== ENCOUNTER 2023-01-12 10:41 | Outpatient (REF) | payer OTHER, SELFPAY ==
[2023-01-12 13:12] LABS: MANUAL DIFF FLAG NO
[2023-01-12 13:45] LABS: Basophils Absolute Auto 0.1 X10*3/uL (0.0-0.2); Basophils Percent Auto 0.5 % (0-2); Eosinophils Absolute Auto 0.1 X10*3/uL (0.0-0.4); Eosinophils Percent Auto 0.9 % (0-4); Hematocrit 40.4 % (37.0-47.0); Hemoglobin 12.6 g/dl (12.0-16.0); Imm Gran Abs Auto 0.03 X10*3/uL (0.00-0.03); Imm Gran Pct Auto 0.3 % (0.0-0.4); Lymphocytes Absolute Auto 3.7 X10*3/uL (1.2-4.9); Lymphocytes Percent Auto 34.7 % (20-40); Mean Corpuscular HGB Conc 31.2 g/dl (31.0-35.0); Mean Corpuscular Hemoglobin 23.9 pg (27.0-33.0); Mean Corpuscular Volume 76.7 fL (80.0-98.0); Mean Platelet Volume 10.3 fL (9.4-12.3); Monocytes Absolute Auto 0.7 X10*3/uL (0.1-1.2); Monocytes Percent Auto 6.2 % (2-11); Neutrophils Absolute Auto 6.1 x10*3/uL (2.0-8.3); Neutrophils Percent Auto 57.4 % (45-73); Platelet Count 393 X10*3/uL (160-400); Red Blood Count 5.27 X10*6/uL (4.20-5.50); Red Cell Distribution Width 16.8 % (11.0-16.0); White Blood Count 10.6 X10*3/uL (4.8-10.8)
== END 2023-01-12 10:42 | disposition home or self-care (01) ==
LOC: HO.HMGCLDS 10:41
PROVIDERS: PCP Nurse Practitioner Family; Visit Provider Nurse Practitioner Family
DX: G25.81 Restless legs syndrome (principal); R53.83 Other fatigue
CPT/HCPCS: 36415; 80053; 82728; 83540; 85025

== ENCOUNTER 2023-07-14 10:00 | Outpatient (AMB) | payer OTHER, SELFPAY ==
[2023-07-14 10:03] VITALS: BP 130/80; BMI 35.4
--- NOTE | 2023-07-14 10:03 | A.OFFVIS_ITS ---
Intake Vital Signs 07/14/23 10:03 Height 5 ft 5 in Weight 213 lb BMI 35.4 BP 130/80 Intake Visit Reasons: pain/irregular menses Intake Note: period was 2 weeks late and when she got her menses she states it was horrible and was cramping in her back. Food Service Assistant Required: No Information Interpreted: non-clinical & clinical Assurance Associate: Assurance Associate Present (Aidyn) Allergies environmental allergies Allergy (Unknown, Verified 07/14/23 10:07) Itchy Eyes Medication List - Last Reconciled 07/14/23 by Cathy Trinidad CNM No Known Home Meds Is last menstrual period known: Yes Last menstrual period: 07/07/23 Post menopausal: No HPI pain/irregular menses HPI Details Patient is here to talk about her periods she normally gets 24-25 days cycles her previous menses was May 29 and she was due around June 25 but it did not come until July 10 it was heavier and much more painful and crampy but it was shorter in length it lasted 4-5 days instead of the usual 6-7. She has a tubal ligation so she was not particularly worried about but she did get nervous she did a test before and it was negative. She had an abnormal Pap smear last September with ASCUS with positive HPV and she had multiple biopsy sites done at colposcopy with Dr. Ellison and the plan is to repeat the Pap smear with Co testing this September and follow-up from there with repeat colpo in biopsy if necessary. Discussed her health overall she has used other methods of control in the past but she felt she gained weight with them though we did review that weight gain is not a normal side effect of a Mirena though it can be expected with Depo-Provera and the Nexplanon.. She is actually trying to lose weight and is gradually gradually losing she is trying to not eat late at night and has cut out a lot of sweets and is improved her eating habits. She still feels very tired after her. And that is her norm and she is used to that. She thought she had full panel of blood work with her primary care provider done within the last year [facility] Medical History (Updated 07/14/23 @ 10:54 by Cathy Trinidad CNM) Hx of retinal detachment Surgical History (Updated 01/09/24 @ 10:47 by Cathy Trinidad CNM) Hx of eye surgery Hx of cholecystectomy Hx of tonsillectomy History of bilateral tubal ligation Family History Father HTN (hypertension) Mental health disorder Mother HTN (hypertension) Mental health disorder Paternal Uncle Substance use disorder Sister Mental health disorder Social History (Updated 07/14/23 @ 10:10 by TENISHA Shin) Housing: Apartment Alcohol intake: current Alcohol intake frequency: holidays/special occasions only Patient Tobacco Use Status: Current someday Tobacco user e-Cigarette/Vaping Use: Currently Using Second Hand Smoke Exposure: No Use of substances other than those prescribed or required for medical reasons: Yes Substance Use Type: Marijuana service: No Current occupational status: employed Current occupation: [employer] Current occupational exposures/hazards: No Gender identity: Female Cognitive needs: No Hearing needs: No Vision needs: No Female Reproductive History Menstrual Age of Menarche: 14 Duration of menses: 6-7 days Date of last menstrual period: 07/07/23 control method: other (tubal ligation) Total pregnancies: 5 Full term: 4 Number of Living Children: 4 Ab spontaneous: 1 Date of last pap smear: 09/29/22 (ASCUS +HPV) History of abnormal pap smear: Yes Physical Exam Vital Signs: Last Vital Signs BP 130/80 07/14/23 10:03 BMI result Body Mass Index 35.4 Results Reviewed Results Reviewed: Name: Carrol Klein Age/Sex: 37/F : 1985 Unit#: [id number] Attend Dr: Cody Weller [facility] Re01/12/23 Status: DEP [facility]F [facility] Disch: SPEC : [id number] GALINA: 01/12/23 STATUS: COMP REQ : [id number] RECD: 01/12/[address]: Cody Weller [facility] COMP: 01/12/23 ENTERED: 01/12/[address]: ORDERED: CBC Auto Diff Test Result Flag Reference Site WBC 10.6 4.8-10.8 X10*3/uL RBC 5.27 4.20-5.50 X10*6/uL HGB 12.6 12.0-16.0 g/dl HCT 40.4 37.0-47.0 % MCV 76.7 L 80.0-98.0 fL MCH 23.9 L 27.0-33.0 pg MCHC 31.2 31.0-35.0 g/dl RDW 16.8 H 11.0-16.0 % PLT 393 160-400 X10*3/uL MPV 10.3 9.4-12.3 fL Neut Pct Auto 57.4 45-73 % ImGran Pct Auto 0.3 0.0-0.4 % Lymp Pct Auto 34.7 20-40 % Ritchie Pct Auto 6.2 2-11 % Eos Pct Auto 0.9 0-4 % Baso Pct Auto 0.5 0-2 % NRBC Pct Auto 0.0 0.0-0.2 /100WBC ANC Neut Abs # 6.1 2.0-8.3 x10*3/uL ImGran Abs Auto 0.03 0.00-0.03 X 10*3/uL Lymph Abs Auto 3.7 1.2-4.9 X10*3/uL Ritchie Abs Auto 0.7 0.1-1.2 X10*3/uL Eos Abs Auto 0.1 0.0-0.4 X10*3/uL Baso Abs Auto 0.1 0.0-0.2 X10*3/uL NRBC Abs Auto 0.000 0.0-0.012 X10*3/uL Name: Carrol Klein Age/Sex: 37/F : 1985 Unit#: [id number] [facility] Re10/04/22 Status: DEP [facility] Disch: SPEC : [id number] GALINA: 10/04/22 STATUS: COMP REQ : [id number] RECD: 10/04/[address]: Cody Weller [facility] COMP: 10/04/22 ENTERED: 10/04/[address] [facility] [address]: ORDERED: CMP Fast, Lipid Panel, TSH Rflx Test Result Flag Reference Site Sodium 142 135-145 mmol/L Potassium 4.5 3.3-5.1 mmol/L CL 110 H 96-108 mmol/L CO2 24 22-29 mmol/L Gap 13 12-20 BUN 9 9-16 mg/dL Creat 0.67 0.5-1.4 mg/dL EGFR > 60 NOTE: For -Greenlandic individuals, multiply the result by 1.210. Chronic Kidney Disease: Estimated GFR < 60 mL/min/1.73m2 Severe Kidney Disease: Estimated GFR < 15 mL/min/1.73m2 FBS 92 60-99 mg/dL CA 8.8 8.4-10.2 mg/dL Total Bili 0.3 0.0-1.0 mg/dL AST (GOT) 17 5-31 U/L ALT (GPT) 21 0-31 U/L Protein, Total 6.6 6.5-8.0 g/dL Alb 4.3 3.5-5.0 g/dL Triglyceride 57 mg/dL Desirable Triglyceride: less than 150 mg/dL Borderline High Triglyceride 150-199 mg/dL High Triglyceride: 200-499 mg/dL Very High Triglyceride: greater than or equal to 5OO mg/dL Chol 174 mg/dL Desirable Cholesterol: less than 200 mg/dL Borderline High Cholesterol: 200-239 mg/dL High Cholesterol: greater than 239 mg/dL LDL Calculated 104 mg/dl Desirable LDL: less than 100 mg/dL Near Optimal/Above Optimal LDL: 110-129 mg/dL Borderline High LDL: 130-159 mg/dL High LDL: 160-189 mg/dL Very High LDL: greater than or equal to 190 mg/dL HDL 59 mg/dL Desirable HDL: greater than 40 mg/dL Note: This HDL assay may give artificially low results in patients with liver disease. Alk Phos 76 39-117 U/L TSH 0.61 0.32-4.0 uIU/mL Assessment & Plan Assessment & Plan (1) ASCUS with positive high risk HPV cervical: Comment: See colpo and biopsy results. Plan is repeat Pap & Co testing September 2023. Code(s): R87.610 - Atypical squamous cells of undetermined significance on cytologic smear of cervix (ASC-US); R87.810 - Cervical high risk human papillomavirus (HPV) DNA test positive (2) Dysmenorrhea, unspecified: Code(s): N94.6 - Dysmenorrhea, unspecified (3) Menorrhagia: Code(s): N92.0 - Excessive and frequent menstruation with regular cycle (4) Obesity (BMI 35.0-39.9 without comorbidity): Code(s): E66.9 - Obesity, unspecified (5) History of bilateral tubal ligation: Code(s): Z98.51 - Tubal ligation status Plan Patient is here to talk about her periods she normally gets 24-25 days cycles her previous menses was May 29 and she was due around June 25 but it did not come until July 10 it was heavier and much more painful and crampy but it was shorter in length it lasted 4-5 days instead of the usual 6-7. She has a tubal ligation so she was not particularly worried about but she did get nervous she did a test before and it was negative. She had an abnormal Pap smear last September with ASCUS with positive HPV and she had multiple biopsy sites done at colposcopy with Dr. Ellison and the plan is to repeat the Pap smear with Co testing this September and follow-up from there with repeat colpo in biopsy if necessary. Discussed her health overall she has used other methods of control in the past but she felt she gained weight with them though we did review that weight gain is not a normal side effect of a Mirena though it can be expected with Depo-Provera and the Nexplanon.. She is actually trying to lose weight and is gradually gradually losing she is trying to not eat late at night and has cut out a lot of sweets and is improved her eating habits. She still feels very tired after her period.. And that is her norm and she is used to that. She thought she had full panel of blood work with her primary care provider done within the last year. Previous CBC did not show anemia TSH was also within normal limits. I am repeating the CBC and I am ordering a serum hCG just to rule out for peace of mind good she did have concern about ectopic in her list of concerns because of her history of tubal ligation. She also discussed smoking she is interested in quitting and wishes she could she may talk to her primary care provider about it and I encouraged this and we discussed reasons to quit. She is going to schedule her annual exam and consider options of the Mirena for perhaps after evaluation of her Pap smear and any follow-up that is necessary if it is abnormal I did discuss that sometimes if a LEEP is necessary the strings for a Mirena we might end up being cut so it might be so worthwhile to consider after full evaluation of her cervix is done this year. Orders: Orders Complete Blood Count no Diff Today E66.9 - Obesity, unspecified, N92.0 - Excessive and frequent menstruation with regular cycle, N94.6 - Dysmenorrhea, unspecified, R87.610 - Atypical squamous cells of undetermined significance on cytologic smear of cervix (ASC-US), R87.810 - Cervical high risk human papillom avirus (HPV) DNA test positive, Z98.51 - Tubal ligation status HCG Quantitative Today E66.9 - Obesity, unspecified, N92.0 - Excessive and frequent menstruation with regular cycle, N94.6 - Dysmenorrhea, unspecified, R87.610 - Atypical squamous cells of undetermined significance on cytologic smear of cervix (ASC-US), R87.810 - Cervical high risk human papillomavirus (HPV) DNA test positive, Z98.51 - Tubal ligation status Coding Level of Care Code Est Pt Level 3 (46175) Diagnoses ASCUS with positive high risk HPV cervical R87.610; R87.810 Dysmenorrhea, unspecified N94.6 Menorrhagia N92.0 Obesity (BMI 35.0-39.9 without comorbidity) E66.9 History of bilateral tubal ligation Z98.51
== END 2023-07-14 11:28 | disposition home or self-care (01) ==
LOC: HO.HWSM 10:00
PROVIDERS: PCP Nurse Practitioner Family; Visit Provider Advanced Practice Midwife
DX: R87.610 Atypical squamous cells of undetermined significance on cytologic smear of cervix (ASC-US) (principal); R87.810 Cervical high risk human papillomavirus (HPV) DNA test positive; N94.6 Dysmenorrhea, unspecified; N92.0 Excessive and frequent menstruation with regular cycle; E66.9 Obesity, unspecified; Z98.51 Tubal ligation status
CPT/HCPCS: 99213

== ENCOUNTER → 2023-07-14 10:00 | Outpatient (BNVA) | payer OTHER, SELFPAY | PROVIDERS: PCP Nurse Practitioner Family; Visit Provider Advanced Practice Midwife ==

== ENCOUNTER 2023-07-14 11:05 | Outpatient (REF) | payer OTHER, SELFPAY ==
[2023-07-14 13:12] LABS: Hemoglobin 11.7 g/dl (12.0-16.0); Mean Corpuscular HGB Conc 30.8 g/dl (31.0-35.0); Mean Corpuscular Hemoglobin 24.5 pg (27.0-33.0); Mean Corpuscular Volume 79.5 fL (80.0-98.0); Mean Platelet Volume 10.8 fL (9.4-12.3); Platelet Count 381 X10*3/uL (160-400); Red Blood Count 4.78 X10*6/uL (4.20-5.50); White Blood Count 8.3 X10*3/uL (4.8-10.8)
[2023-07-14 13:28] LABS: Appearance Urine Cloudy; Color Urine Yellow; Glucose Urine UA Negative (Negative); Leukocyte Esterase Urine Large (3+) (Negative); Nitrite Urine Negative (Negative); PH 5.5 (5.0-9.0); Specific Gravity - Urine 1.015 (1.005-1.025); UMIC TRIGGER UACC YES; Urine Blood Negative (Negative); Urine Ketones Negative (Negative); Urine Protein Negative (Neg-Trace)
[2023-07-14 13:37] LABS: Bacteria Urine 4+ (None Seen); Hyaline Casts Urine 0-2 /LPF (0-2); RBC Urine 0-2 /HPF (0-2); UACC Culture Trigger YES; WBC Urine 21-50 /HPF (0-5)
[2023-07-14 13:53] LABS: HCG Quantitative < 2 mIU/mL
== END 2023-07-14 11:06 | disposition home or self-care (01) ==
LOC: HO.HHCL 11:05
PROVIDERS: Advanced Practice Midwife; Visit Provider Nurse Practitioner Family
DX: N94.6 Dysmenorrhea, unspecified (principal); N92.0 Excessive and frequent menstruation with regular cycle; R87.610 Atypical squamous cells of undetermined significance on cytologic smear of cervix (ASC-US); R87.810 Cervical high risk human papillomavirus (HPV) DNA test positive; E66.9 Obesity, unspecified; Z68.35 Body mass index [BMI] 35.0-35.9, adult; Z98.51 Tubal ligation status
CPT/HCPCS: 36415; 81001; 84702; 85027; 87086; 99212

== ENCOUNTER 2023-07-16 10:44 | Emergency (ER) | payer OTHER, SELFPAY ==
--- NOTE | ~2023-07-16 | CT_ITS ---
EXAMINATION: CT ABDOMEN AND PELVIS WITHOUT CONTRAST CLINICAL INFORMATION: Abdominal pain. COMPARISON: Pelvic ultrasound 05/09/2021 Right upper quadrant ultrasound 04/10/2015 TECHNIQUE: Multidetector volumetric imaging was performed from the superior aspect of the liver through the pubic symphysis. Sagittal and coronal reformatted images were obtained on the technologist's workstation. This CT examination was performed using dose optimization techniques as appropriate, variously including the following: *Automated exposure control *Adjustment of mA and/or kV according to patient size (this includes techniques or standardized protocols for targeted exams where dose is matched to indication/reason for exam; i.e. extremities or head) *Use of iterative reconstruction technique DLP: 751 mGy-cm FINDINGS: LUNG BASES: The visualized lung bases are unremarkable. LIVER, GALLBLADDER, AND BILIARY TREE: The noncontrast liver is normal in size, shape, and attenuation. No focal hepatic lesion or biliary ductal dilatation is present. The gallbladder is surgically absent. PANCREAS: Unremarkable. SPLEEN: Unremarkable. ADRENAL GLANDS: Unremarkable. KIDNEYS AND URETERS: The kidneys are symmetric in size. No hydronephrosis. No perinephric stranding. BLADDER: Unremarkable. GASTROINTESTINAL TRACT: Small and large bowel loops are of normal caliber. No small bowel obstruction. ABDOMINAL WALL: No significant hernia is appreciated. LYMPH NODES: No bulky lymphadenopathy. VASCULAR: Normal caliber abdominal aorta. PELVIC VISCERA: Unremarkable. OSSEOUS STRUCTURES: Bilateral L5 pars defects. CT/CT abdomen pelvis wo IV con IMPRESSION: No acute abnormality in the abdomen or pelvis.
[2023-07-16 10:47] VITALS: BP 176/96; PULSE 71; RESP 19; TEMP 36.6; O2SAT 100; BMI 36.3
[2023-07-16 11:11] LABS: MANUAL DIFF FLAG NO
[2023-07-16 11:13] LABS: Basophils Absolute Auto 0.1 X10*3/uL (0.0-0.2); Basophils Percent Auto 0.6 % (0-2); Eosinophils Percent Auto 0.3 % (0-4); Hematocrit 42.9 % (37.0-47.0); Hemoglobin 13.3 g/dl (12.0-16.0); Imm Gran Abs Auto 0.01 X10*3/uL (0.00-0.03); Imm Gran Pct Auto 0.1 % (0.0-0.4); Lymphocytes Absolute Auto 3.6 X10*3/uL (1.2-4.9); Lymphocytes Percent Auto 40.8 % (20-40); Mean Corpuscular Volume 77.3 fL (80.0-98.0); Mean Platelet Volume 9.8 fL (9.4-12.3); Monocytes Absolute Auto 0.6 X10*3/uL (0.1-1.2); Monocytes Percent Auto 6.6 % (2-11); Neutrophils Absolute Auto 4.5 x10*3/uL (2.0-8.3); Neutrophils Percent Auto 51.6 % (45-73); Platelet Count 399 X10*3/uL (160-400); Red Blood Count 5.55 X10*6/uL (4.20-5.50); White Blood Count 8.8 X10*3/uL (4.8-10.8)
[2023-07-16 11:16] LABS: UPreg QC Valid YES; Urine Pregnancy NEGATIVE (NEGATIVE)
[2023-07-16 11:17] LABS: Appearance Urine Clear; Color Urine Yellow; Glucose Urine UA Negative (Negative); Leukocyte Esterase Urine Moderate (2+) (Negative); Nitrite Urine Negative (Negative); PH 6.5 (5.0-9.0); UMIC TRIGGER UACC YES; Urine Blood Negative (Negative); Urine Ketones Negative (Negative); Urine Protein Negative (Neg-Trace)
[2023-07-16 11:28] LABS: Alanine Aminotransferase 28 U/L (0-31); Albumin Level 5.1 g/dL (3.5-5.0); Alkaline Phosphatase 80 U/L (39-117); Anion Gap 12 (12-20); Aspartate Amino Transferase 22 U/L (5-31); Bilirubin Direct 0.1 mg/dL (0.0-0.5); Bilirubin Total 0.4 mg/dL (0.0-1.0); Blood Urea Nitrogen 6 mg/dL (9-16); Calcium 9.9 mg/dL (8.4-10.2); Carbon Dioxide 24 mmol/L (22-29); Chloride 108 mmol/L (96-108); Creatinine Clr Calc Pharmacy 137.3; Estimated Glomerular Filt Rate > 60; Glucose Random 78 mg/dL (60-115); Lipase 17 U/L (8-78); Potassium 3.4 mmol/L (3.3-5.1); Sodium 141 mmol/L (135-145); Total Protein 8.4 g/dL (6.5-8.0)
[2023-07-16 11:54] LABS: Bacteria Urine None Seen (None Seen); Hyaline Casts Urine 0-2 /LPF (0-2); RBC Urine 0-2 /HPF (0-2); Squamous Epithelial Cell Urine 0-2 /HPF (0-2); WBC Urine 0-5 /HPF (0-5)
--- NOTE | 2023-07-16 12:54 | ED.ABDPAIN ---
HPI - Abdominal Pain General Chief Complaint: Abdominal Pain Stated Complaint: abd pain Time Seen by Provider: 07/16/23 12:47 Source: patient Mode of arrival: ambulatory Limitations: no limitations History of Present Illness HPI narrative: a 38-year-old female presented with diffuse abdominal pain started about 2 weeks ago, patient recently was checked by her OBGYN for late menses was told she has not , pain has been constant for 2 weeks diffuse to the whole abdomen radiates to the back. No other associated nausea or vomiting or fever or diarrhea. Related Data Previous Rx's Medication Instructions Recorded ferrous sulfate 324 mg (65 mg 324 mg PO DAILY #30 tabs 07/15/23 iron) tablet,delayed release Allergies Allergy/AdvReac Type Severity Reaction Status Date / Time environmental allergies Allergy Unknown Itchy Eyes Verified 07/16/23 10:47 Review of Systems Review of Systems all other systems are reviewed and are negative Constitutional: Reports as per HPI and Reports no additional constitutional complaints Eyes: Reports as per HPI and Reports no additional eye complaints Reports system reviewed and no additional complaints, except as documented Cardiovascular: Reports as per HPI and Reports no additional cardiovascular complaints Respiratory: Reports as per HPI and Reports no additional respiratory complaints Gastrointestinal: Reports as per HPI and Reports no additional gastrointestinal complaints Genitourinary: Reports no additional female genitourinary complaints Musculoskeletal: Reports no additional musculoskeletal complaints Skin/Breast: Reports system reviewed and no additional complaints, except as docu Psychiatric: Reports no additional psychiatric complaints Endocrine: Reports no additional endocrine complaints Hematologic/Lymphatic: Reports no additional hematologic/lymphatic complaints Allergic/Immunologic: Reports no additional allergic/immunologic complaints Reports system reviewed and no additional complaints, except as documented and Reports Abnormal speech present PMFSH Past Medical History Onset Date is defined in the Problem List Problems that require an onset date and time if occurred within 24 hrs of arrival to the ED Aortic Dissection and Rupture; Neurologic impairment; Cardiopulmonary Arrest; Endotracheal Intubation; Insertion or Replacement of Mechanical Circulatory Assist Device Medical History Hx of retinal detachment Surgical History Hx of eye surgery Hx of cholecystectomy Hx of tonsillectomy History of bilateral tubal ligation Family History Family History Father HTN (hypertension) Mental health disorder Mother HTN (hypertension) Mental health disorder Paternal Uncle Substance use disorder Sister Mental health disorder Social History Social History Housing: Apartment Alcohol intake: current Alcohol intake frequency: holidays/special occasions only Patient Tobacco Use Status: Current someday Tobacco user e-Cigarette/Vaping Use: Currently Using Second Hand Smoke Exposure: No Substance Use Type: Marijuana Advance Directives: No Advance Directives Information Provided: Yes service: No Current occupational status: employed Current occupation: [employer] Current occupational exposures/hazards: No Gender identity: Female Cognitive needs: No Hearing needs: No Vision needs: No Physical Exam ED Vital Signs: Vital Signs - 24 hr 07/16/23 10:47 07/16/23 14:40 Temperature 98 F 97.8 F Pulse Rate 71 60 Respiratory Rate 19 16 Blood Pressure 176/96 H 162/86 H Pulse Oximetry 100 100 Oxygen Delivery Method Room Air Room Air BMI result Body Mass Index 36.3 Vital signs have been reviewed and appear to be correct. Blood pressure elevated. Heart rate normal. Respiratory rate normal. Temperature normal. Oxygen saturation normal. Appearance: Alert. Oriented X3. No acute distress. Head: Normal external exam. Normocephalic. Atraumatic. No Kenney signs noted. No raccoon eyes noted Eyes: PERRLA. EOMI. Conjunctiva and sclera normal. Eyelids normal. ENT: TM's Normal. Pharynx normal. Uvula midline. Moist mucous membranes. No trismus noted. No drooling noted. No muffled voice noted. Neck: Normal inspection. Neck supple. FROM. No adenopathy. Thyroid Normal. No meningeal signs. No neck mass noted. CVS: Normal heart rate and rhythm. Heart sound normal. No murmurs noted. Pulses normal throughout. Respiratory: No respiratory distress. Painless inspiration. Breath sounds normal. No wheezes/rales/rhonchi noted. Chest nontender. No accessory muscle usage noted or decreased air movement noted. Abdomen: Soft, diffuse abdominal tenderness, no rebound tenderness, no guarding.Bowel sounds normal in all 4 quadrants. No distention noted. No organomegaly noted. No visible injury noted. Back: No CVA tenderness. Full range of motion noted. Skin: Skin warm and dry. Normal skin color. Normal skin turgor. No rashes/lesions/lacerations noted. Extremities: No lower extremity edema. Extremities exhibit normal range of motion. Extremities nontender. Neuro: Oriented X 3. Cranial nerve exam: II-XII are grossly intact No motor deficit. No sensory deficit. Reflexes normal. Course Reevaluation(s) Reevaluation #1: Abdominal pain has improved while she is in the emergency department, CT abdomen pelvis is unremarkable for acute intra-abdominal pathology, unremarkable labs and UA. results were discussed with the patient to follow-up with her OBGYN. Time: 15:48 Medical Decision Making Differential Diagnosis Differential Diagnoses: The differential diagnosis associated with the presentation includes ( Kidney stone, colitis, diverticulitis, pancreatitis, UTI, pyelonephritis, abnormal , electrolyte abnormality, severe anemia.) Admission/Observation Consideration of admission/observation: Escalation of care including admission/observation considered Lab Data MDM Lab Attestation statement: I reviewed the patient's lab results. 07/16/23 11:06 07/16/23 11:06 Labs: Lab Results 07/16/23 Range/Units 11:06 WBC 8.8 (4.8-10.8) X10*3/uL RBC 5.55 H (4.20-5.50) X10*6/uL Hgb 13.3 (12.0-16.0) g/dl Hct 42.9 (37.0-47.0) % MCV 77.3 L (80.0-98.0) fL MCH 24.0 L (27.0-33.0) pg MCHC 31.0 (31.0-35.0) g/dl RDW 16.0 (11.0-16.0) % Plt Count 399 (160-400) X10*3/uL MPV 9.8 (9.4-12.3) fL Immature Gran % (Auto) 0.1 (0.0-0.4) % Neut % (Auto) 51.6 (45-73) % Lymph % (Auto) 40.8 H (20-40) % Miner % (Auto) 6.6 (2-11) % Eos % (Auto) 0.3 (0-4) % Baso % (Auto) 0.6 (0-2) % Lymph # (Auto) 3.6 (1.2-4.9) X10*3/uL Miner # (Auto) 0.6 (0.1-1.2) X10*3/uL Eos # (Auto) 0.0 (0.0-0.4) X10*3/uL Baso # (Auto) 0.1 (0.0-0.2) X10*3/uL Abs Immat Gran (auto) 0.01 (0.00-0.03) X10*3/uL Absolute Neuts (auto) 4.5 (2.0-8.3) x10*3/uL Absolute Nucleated RBC 0.000 (0.0-0.012) X10*3/uL Nucleated RBC % (auto) 0.0 (0.0-0.2) /100WBC Sodium 141 (135-145) mmol/L Potassium 3.4 (3.3-5.1) mmol/L Chloride 108 (96-108) mmol/L Carbon Dioxide 24 (22-29) mmol/L Anion Gap 12 (12-20) BUN 6 L (9-16) mg/dL Creatinine 0.66 (0.5-1.4) mg/dL Estim Creat Clear Calc 137.3 Estimated GFR > 60 Random Glucose 78 (60-115) mg/dL Calcium 9.9 D (8.4-10.2) mg/dL Total Bilirubin 0.4 (0.0-1.0) mg/dL Direct Bilirubin 0.1 (0.0-0.5) mg/dL AST 22 (5-31) U/L ALT 28 (0-31) U/L Alkaline Phosphatase 80 (39-117) U/L Total Protein 8.4 H (6.5-8.0) g/dL Albumin 5.1 H (3.5-5.0) g/dL Lipase 17 (8-78) U/L Beta HCG, Quant < 2 mIU/mL Urine Color Yellow Urine Appearance Clear Urine pH 6.5 (5.0-9.0) Ur Specific Halliday 1.010 (1.005-1.025) Urine Protein Negative (Neg-Trace) mg/dL Urine Glucose (UA) Negative (Negative) mg/dL Urine Ketones Negative (Negative) mg/dL Urine Blood Negative (Negative) Urine Nitrite Negative (Negative) Ur Leukocyte Esterase Moderate (2+) H (Negative) Urine RBC 0-2 (0-2) /HPF Urine WBC 0-5 (0-5) /HPF Ur Squamous Epith Cells 0-2 (0-2) /HPF Urine Bacteria None Seen (None Seen) Hyaline Casts 0-2 (0-2) /LPF Urine Test NEGATIVE (NEGATIVE) Independent Interpretation I performed an independent interpretation of an: CT Scan ( Abdomen and pelvis: No acute intra-abdominal pathology.) Radiology Impression Discussion of test interpretation with radiology: I have reviewed the radiologist's reading. Medications Administered Discontinued Medications Generic Name Dose Route Start Last Admin Trade Name Freq PRN Reason Stop Dose Admin Hydromorphone HCl 1 mg 07/16/23 12:53 07/16/23 13:32 Hydromorphone Hcl 1 Mg/Ml Syringe IVPUSH 07/16/23 12:54 1 mg ONCE ONE Administration Protocol Discharge Plan Discharge Clinical Impression: Abdominal pain Patient Disposition: Home, Self-Care Instructions: Abdominal Pain (ED) Additional Instructions: follow-up with your OBGYN. Prescriptions: No Action ferrous sulfate 324 mg (65 mg iron) tablet,delayed release (DR/EC) 324 mg PO DAILY Qty: 30 2RF Referrals: Cody Weller, [employer] [Primary Care Provider] -
[2023-07-16 13:20] LABS: HCG Quantitative < 2 mIU/mL
[2023-07-16] MEDS: HYDROmorphone HCl 1 MG/ML SYRINGE IVPUSH (13:32)
[2023-07-16 14:40] VITALS: BP 162/86; PULSE 60; RESP 16; TEMP 36.6; O2SAT 100
--- NOTE | 2023-07-16 16:05 | PC.NURSE ---
assumed care of pt at 1500. pt a&o x4, calm, and cooperative. pt speaking in full complete sentences. rating abdominal pain /10. pt resting quietly on stretcher in no apparent distress. rr even/unlabored. call brian within pt reach. plan of care ongoing.
== END 2023-07-16 16:06 | disposition home or self-care (01) ==
PROVIDERS: Physician Assistant Medical; Emergency Provider Emergency Medicine; PCP Nurse Practitioner Family
DX: R10.9 Unspecified abdominal pain (principal); I10 Essential (primary) hypertension
CPT/HCPCS: 36415; 74176; 80048; 80076; 81001; 81025; 83690; 84702; 85025; 96374; 99284; J1170

== ENCOUNTER 2023-07-28 11:36 | Outpatient (AMB) | payer OTHER, SELFPAY ==
--- NOTE | 2023-07-28 11:39 | MHC.PC.OV ---
Vital Signs 07/28/23 11:45 07/28/23 11:57 Height 5 ft 5 in Weight 211 lb BMI 35.1 BP 140/88 H 140/100 H Blood Pressure Location Lt brachial Lt brachial Position Sitting Sitting Pulse 66 Pulse Source Pulse Oximeter Pulse Oximetry (%) 100 Oxygen Delivery Method Room Air Intake Visit Reasons: PE Intake Note: Pt is here for her Annual PE Allergies environmental allergies Allergy (Unknown, Verified 07/28/23 11:47) Itchy Eyes Tobacco use date assessed: 07/28/23 Dental Screening Dental Screen Date: 07/28/23 Did you have a dental visit in the last 12 months?: Yes Did you have a dental problem in the last 6 months where you did not have access to dental care?: No Was dental information given to patient?: Patient has dentist HPI PE HPI Details Pt is here for a PE. Labs were already performed. 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 HTN: Blood pressure is elevated today. Pt reports that it has been elevated at other providers' offices as well. She does report increased stress. Will start losartan 25mg and repeat labs in the near future. Will have pt schedule nurse visits for BP checks as she is unable to purchase her own cuff (though script supplied). Denies chest pain, shortness of breath, headache, dizziness, and blurred vision. [facility] Medical History Hx of retinal detachment Surgical History Hx of eye surgery Hx of cholecystectomy Hx of tonsillectomy History of bilateral tubal ligation Family History Father HTN (hypertension) Mental health disorder Mother HTN (hypertension) Mental health disorder Paternal Uncle Substance use disorder Sister Mental health disorder Social History Housing: Apartment Alcohol intake: current Alcohol intake frequency: a few times a week Patient Tobacco Use Status: Current someday Tobacco user Tobacco use type: Cigarette e-Cigarette/Vaping Use: Currently Using Second Hand Smoke Exposure: No Substance Use Type: Marijuana service: No Current occupational status: employed Current occupation: [employer] Current occupational exposures/hazards: No Gender identity: Female Cognitive needs: No Hearing needs: No Vision needs: No Female Reproductive History Menstrual Age of Menarche: 14 Questionnaire PHQ-9 Over the last 2 weeks, how often have you been bothered by any of the following problems? 1. Little interest or pleasure in doing things: several days 2. Feeling down, depressed, or hopeless: more than half the days 3. Trouble falling or staying asleep, or sleeping too much: more than half the days 4. Feeling tired or having little energy: more than half the days 5. Poor appetite or overeating: more than half the days 6. Feeling bad about yourself - or that you are a failure or have let yourself or your family down: several days 7. Trouble concentrating on things, such as reading the newspaper or watching television: nearly every day 8. Moving or speaking so slowly that other people could have noticed. Or the opposite - being so fidgety or restless that you have been moving around a lot more than usual: not at all 9. Thoughts that you would be better off or of hurting yourself in some way: not at all Total score: 13 Source: Developed by Drs. Domenico Sebastian, Ashley Rodriguez, Sharad Pacheco and colleagues, with an educational rk from [employer]. Thrive Questionnaire Date Thrive assessed: 07/28/23 I am a: Patient What is your living situation today?: I have a steady place to live Within the past 12 months, did the food you bought not last and you didn't have the money to get more?: Sometimes True Within the past 12 months, did you worry whether your food would run out before you got money to buy more?: Sometimes True Do you have trouble paying for medicines?: No Do you have trouble getting transportation to medical appointments?: No Do you have trouble paying your heating and electricity bill?: No Do you have trouble taking care of your child, family member or friend?: No Do you have trouble with day-to-day activities such as bathing, preparing meals, shopping, managing finances, etc.?: No Are you currently unemployed and looking for a job?: No Are you interested in more education?: Yes THRIVE Score: 2 AUDIT C Alcohol Use Questionnaire (AUDIT-C) 1. How often do you have a drink containing alcohol?: Monthly or less 2. How many drinks containing alcohol do you have on a typical day when you are drinking?: 3 or 4 3. How often do you have six or more drinks on one occasion?: Never Total Score: 2 WILLIE-7 AMB Questionnaire WILLIE-7 Date WILLIE - 7 assessed: 07/28/23 Feeling nervous, anxious, or on edge: 1 = Several days Not being able to stop or control worryin = More than half the days Worrying too much about different things: 2 = More than half the days Trouble relaxin = More than half the days Being so restless that it is hard to sit still: 0 = Not at all Becoming easily annoyed or irritable: 2 = More than half the days Feeling afraid as if something awful might happen: 1 = Several days Total WILLIE-7 score (0-4 normal; 5-9 mild; 10-14 moderate; 15-21 severe): 10 Source: Developed by Drs. Domenico Sebastian, Ashley Rodriguez, Sharad Pacheco and colleagues, with an educational rk from [employer]. Review of Systems Const Denies chills and Denies fever(s) Eyes Denies blurry vision ENT Denies vertigo, Denies dizziness and Denies sore throat Card Denies chest pain at rest, Denies chest pain with activity, Denies diaphoresis, Denies dyspnea and Denies dyspnea on exertion Resp Denies cough, Denies dyspnea, Denies dyspnea on exertion and Denies wheezing GI Denies abdominal pain, Denies melena, Denies hematochezia, Denies constipation, Denies diarrhea and Denies loose stools Denies hematuria Musc Denies numbness and Denies tingling Skin/Breast Denies lesions Neuro Denies vertigo, Denies dizziness, Denies numbness and Denies tingling Psych Denies anxiety, Denies depression, Denies homicidal ideation, Denies suicidal ideation and Denies other (substance abuse) Aller/Immun Denies wheezing Physical exam (Primary Care) Vital Signs: Last Vital Signs Pulse 66 07/28/23 11:45 BP 140/88 H 07/28/23 11:45 Pulse Ox 100 07/28/23 11:45 Oxygen Delivery Method Room Air 07/28/23 11:45 BMI result Body Mass Index 35.1 Tobacco/Smoking Status: Tobacco use Status Tobacco use date assessed 07/28/23 07/28/23 11:50 Patient Tobacco Use Status Current someday Tobacco 07/28/23 11:39 Tobacco use type Cigarette 07/28/23 11:50 e-Cigarette/Vaping Use Currently Using 07/28/23 11:39 Thrive Assessment: Date of Thrive Assessment Date Thrive assessed 07/14/22 07/28/23 11:39 Const General: cooperative Nutritional Appearance: obese morbidly obese Orientation/consciousness: patient oriented x3 HENMT Head: Yes normal to inspection, Yes normocephalic and Yes atraumatic Ears: TM's normal bilaterally Eyes General: appearance normal, both eyes and all related structures Alignment and Position: alignment normal and position normal Neck Neck: Yes normal visual inspection and Yes no lymphadenopathy Thyroid: Thyroid normal Resp Effort & Inspection: normal respiratory effort Auscultation: clear to auscultation bilaterally Cardio Rate: regular rate Rhythm: regular rhythm Heart sounds: S1 normal heart sound present, S2 normal heart sound present and no murmurs GI Palpation (GI): Soft to palpation and nontender Auscultation: normal bowel sounds Skin Rashes: no rashes Neuro General: patient oriented x3, moves all extremities, no focal motor deficits and deep tendon reflexes 2+ bilaterally Romberg Test: Negative Psych Appearance: grossly normal Mental Status: mental status grossly normal Speech and movement: Normal speech and movement present Affect: normal affect Attitude: cooperative Thought process: Normal thought process present Thought content: Normal thought content present Insight: Good insight present (Psych) Judgement: Good judgement present (Psych) Assessment and Plan Assessment & Plan (1) HTN (hypertension): Code(s): I10 - Essential (primary) hypertension Plan: Starting losartan, start taking BPs outside of the office, and Nurse visits. WIll follow up with pt (2) Encounter for routine adult physical exam with abnormal findings: Code(s): Z00.01 - Encounter for general adult medical examination with abnormal findings Plan: Labs already performed Plan The patient agreed to the use of a medical record clerk for this encounter. Scribed for JP Maciel by alis Leslie scribe, on 07/28/2023 at 12:00 EST. Orders: Orders Complete Blood Count Auto Diff Today I10 - Essential (primary) hypertension Comprehensive Met. Panel Today I10 - Essential (primary) hypertension TSH reflex Free T4 Today I10 - Essential (primary) hypertension UA CC w/rflx Micro + Cult Today I10 - Essential (primary) hypertension Medications: New losartan 25 mg PO DAILY 30 tabs 3RF blood pressure test kit-large (Quick Response BP Monitor-Large Cuff kit) twice a week 1 ea 0RF HTN Coding Level of Care Code Est Pt Prev Care 18-39y(74285) Diagnoses HTN (hypertension) I10 Encounter for routine adult physical exam with abnormal findings Z00.01
[2023-07-28 11:45] VITALS: BP 140/88; PULSE 66; O2SAT 100; BMI 35.1
[2023-07-28 11:57] VITALS: BP 140/100
== END 2023-07-28 12:22 | disposition home or self-care (01) ==
PROVIDERS: PCP Nurse Practitioner Family; Visit Provider Nurse Practitioner Family
DX: Z00.01 Encounter for general adult medical examination with abnormal findings (principal); I10 Essential (primary) hypertension
CPT/HCPCS: 99395

== ENCOUNTER 2024-05-24 10:01 | Outpatient (AMB) | payer OTHER, SELFPAY ==
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
[2024-05-24 10:31] VITALS: BP 140/104; PULSE 88; O2SAT 100; BMI 33.3
== END 2024-05-24 11:14 | disposition home or self-care (01) ==
PROVIDERS: PCP Nurse Practitioner Family; Visit Provider Physician Assistant
DX: G43.809 Other migraine, not intractable, without status migrainosus (principal); V89.2XXA Person injured in unspecified motor-vehicle accident, traffic, initial encounter; Z04.3 Encounter for examination and observation following other accident

== ENCOUNTER 2024-05-24 11:35 | Emergency (ER) | payer OTHER, SELFPAY ==
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
[2024-05-24 12:30] VITALS: BP 166/92; PULSE 72; RESP 18; TEMP 36.4; O2SAT 100; BMI 33.3
[2024-05-24 12:45] VITALS: BP 166/92; PULSE 72; RESP 18; TEMP 36.4; O2SAT 100
== END 2024-05-24 12:45 | disposition home or self-care (01) ==
PROVIDERS: Emergency Provider Emergency Medicine; PCP Nurse Practitioner Family
DX: S43.402A Unspecified sprain of left shoulder joint, initial encounter (principal); S06.0XAA Concussion with loss of consciousness status unknown, initial encounter; V43.52XA Car driver injured in collision with other type car in traffic accident, initial encounter; Y93.89 Activity, other specified; Y92.410 Unspecified street and highway as the place of occurrence of the external cause; Y99.9 Unspecified external cause status
CPT/HCPCS: 70450; 99282; 99284

== ENCOUNTER 2024-05-31 11:19 | Outpatient (AMB) | payer OTHER, SELFPAY ==
--- NOTE | 2024-05-31 11:20 | A.OFFVIS_ITS ---
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 No complaints. Last Pap/HPV was ascus HPV positive in 09/25, colpo biopsy ECC was negative PFSH Medical History ASCUS with positive high risk HPV cervical Hx of retinal detachment Surgical History Hx of eye surgery Hx of cholecystectomy Hx of tonsillectomy History of bilateral tubal ligation Family History Father HTN (hypertension) Mental health disorder Mother HTN (hypertension) Mental health disorder Paternal Uncle Substance use disorder Sister Mental health disorder Social History Housing: Apartment Alcohol intake: current Alcohol intake frequency: a few times a week Patient Tobacco Use Status: Current someday Tobacco user Tobacco use type: Cigarette e-Cigarette/Vaping Use: Currently Using Second Hand Smoke Exposure: No Substance Use Type: Marijuana service: No Current occupational status: employed Current occupation: [employer] Current occupational exposures/hazards: No Gender identity: Female Cognitive needs: No Hearing needs: No Vision needs: No Female Reproductive History Menstrual Age of Menarche: 14 Review of Systems Const All systems reviewed & are unremarkable except as noted in HPI and below Card Reports as per HPI Resp Reports as per HPI GI Reports as per HPI and Reports no additional complaints Reports as per HPI Physical Exam Const General: cooperative, healthy appearing and comfortable Chest Chest palpation & inspection: normal inspection of the chest and normal palpation of entire chest wall Breast/axilla inspection: normal inspection of the breasts and normal inspection of the axillae Breast/axilla palpation: normal palpation of the breasts, normal palpation of the axillae and no axillary lymphadenopathy Resp Effort & Inspection: normal respiratory effort Auscultation: clear to auscultation bilaterally Percussion: percussion normal Cardio Palpation: normal PMI Rate: regular rate Rhythm: regular rhythm Heart sounds: no murmurs and no rubs Peripheral pulses: Peripheral pulses 2+ throughout GI Inspection: Yes normal to inspection Palpation (GI): Soft to palpation, nontender, no guarding, not rigid and No hepatosplenomegaly present Percussion: Yes normal to percussion Auscultation: normal bowel sounds Rectal Exam - Female: deferred General: Yes bladder normal to palpation External Female Exam: No lesion Speculum Exam - Vagina: normal appearance of the vagina, normal palpation, normal vaginal discharge and not erythematous Speculum Exam - Cervix: normal appearance of the cervix and normal palpation Bimanual exam- vagina & uterus: normal bimanual exam, normal palpation, uterine size normal, bladder normal to palpation, consistency normal and normal palpation Bimanual Exam- Adnexa, other: normal adnexae, no masses and no tenderness Assessment & Plan Assessment & Plan (1) Well woman exam: Code(s): Z01.419 - Encounter for gynecological examination (general) (routine) without abnormal findings Category: Medical Plan: Cotesting done. Counseled the patient about the recommended dietary allowance of 1000 mg of Calcium & 600 IU of vitamin D. The patient was instructed to perform monthly self-breast exams and to schedule an annual exam in a year; All questions answered and the patient verbalized understanding. Instructed the patient to schedule annual exam in a year Coding Level of Care Code Est Pt Prev Care 18-39y(91034) Diagnoses Well woman exam Z01.419
[2024-05-31 11:25] VITALS: BP 166/92; BMI 33.3
== END 2024-05-31 11:37 | disposition home or self-care (01) ==
LOC: HO.HWS 11:19
PROVIDERS: PCP Nurse Practitioner Family; Visit Provider Obstetrics & Gynecology
DX: Z01.419 Encounter for gynecological examination (general) (routine) without abnormal findings (principal)
CPT/HCPCS: 99395

== ENCOUNTER 2024-05-31 11:19 | Outpatient (REF) | payer OTHER, SELFPAY ==
[2024-06-01 11:00] LABS: HPV 16,18/45 See PAP report
== END 2024-05-31 11:20 | disposition home or self-care (01) ==
LOC: HO.LNP 11:19
PROVIDERS: PCP Nurse Practitioner Family; Visit Provider Obstetrics & Gynecology
DX: Z01.419 Encounter for gynecological examination (general) (routine) without abnormal findings (principal)
CPT/HCPCS: 87624; 88175

== ENCOUNTER 2024-07-15 09:28 | Outpatient (AMB) | payer OTHER, SELFPAY ==
--- NOTE | 2024-07-15 09:45 | A.OFFVIS_ITS ---
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) Accompanied by: Self / Same As Patient Allergies environmental allergies Allergy (Unknown, Verified 07/15/24 09:46) Itchy Eyes HPI Comments Details: Presenting for colposcopy for Pap smear done in 05/25 showing ASCUS HPV negative, this was preceded in 09/25 by ascus/HPV E6 E7 positive PFSH Medical History (Updated 07/15/24 @ 09:59 by Sb Ellison MD) ASCUS with positive high risk HPV cervical Hx of retinal detachment Surgical History Hx of eye surgery Hx of cholecystectomy Hx of tonsillectomy History of bilateral tubal ligation Family History Father HTN (hypertension) Mental health disorder Mother HTN (hypertension) Mental health disorder Paternal Uncle Substance use disorder Sister Mental health disorder Social History Housing: Apartment Alcohol intake: current Alcohol intake frequency: a few times a week Patient Tobacco Use Status: Current someday Tobacco user Tobacco use type: Cigarette e-Cigarette/Vaping Use: Currently Using Second Hand Smoke Exposure: No Substance Use Type: Marijuana service: No Current occupational status: employed Current occupation: [employer] Current occupational exposures/hazards: No Gender identity: Female Cognitive needs: No Hearing needs: No Vision needs: No Female Reproductive History Menstrual Age of Menarche: 14 Office Procedures Colposcopy Colposcopy: Pre-Procedure Counseling: Before beginning the procedure, I conducted comprehensive counseling with the patient. We thoroughly discussed the procedure itself, including its details, alternatives, and all associated risks. This included but not limited to the following complications such as bleeding, infection, and injury to the vagina, bladder, and vessels, as well as the potential need for transfusion with all its associated risks. Subsequently, the patient sign the consent. Pap smear result: Ascus/HPV negative. Urine test in office = Negative Procedure: During the procedure, the following steps were performed: A speculum was inserted, and acetic acid was applied. Colposcopy was conducted, allowing visualization of the transformation zone. Acetowhite lesions were identified at the 6+7+11+12+1 o'clock position. Cervical biopsies were obtained from the 6+7+11+12+1 o'clock position, followed by an endocervical curettage (ECC). Vaginoscopy of the upper vagina revealed no evidence of aceto-white lesions. Hemostasis was achieved using Monsel solution, and the patient tolerated the procedure well. Post-Procedure Instructions: The patient was advised to promptly contact the office or the after hours answering service or go to the emergency room if experiencing a temperature exceeding 100.4?F, abdominal pain, nausea/vomiting, or bleeding. Additionally, the patient was instructed to abstain from vaginal intercourse and bathtub use. The patient confirmed understanding of these instructions. Discharge Instructions: The patient was instructed to schedule a follow-up appointment in 2 weeks for further evaluation and management. Please note that this note was generated using a voice recognition program, and errors may have occurred during radiosonde operator. [id number] of cervix including upper vagina with biopsy and ECC Procedure code (CPT) selection complete Results AMB Test Urine AMB Test Urine Negative Last Edit by Adriana Polk CMA on 09:58 Assessment & Plan Assessment & Plan (1) ASCUS of cervix with negative high risk HPV: Code(s): R87.610 - Atypical squamous cells of undetermined significance on cytologic smear of cervix (ASC-US) Category: Medical Plan: Discussed with the patient the result of her abnormal pap, its significance, risk of progression, persistence, and regression. the false positive/negative rate of a Pap smear as a screening test in detecting cervical cancer and the indication for a diagnostic test -colposcopy, biopsy, endocervical curettage. Colpo/cervical biopsy/ECC done, see procedure note The patient verbalized understanding and agreed with the plan, all questions answered. Orders: Orders AMB HCG Urine Test Today Z32.02 - Encounter for test, result negative AMB Colposcopy Today R87.610 - Atypical squamous cells of undetermined significance on cytologic smear of cervix (ASC-US) Coding Level of Care Code Procedure Only Diagnoses ASCUS of cervix with negative high risk HPV R87.610 CPT Codes Colposcopy - CPT: 09578-[id number] of cervix including upper vagina with biopsy and ECC ([id number])
== END 2024-07-15 10:17 | disposition home or self-care (01) ==
PROVIDERS: PCP Nurse Practitioner Family; Visit Provider Obstetrics & Gynecology
DX: R87.610 Atypical squamous cells of undetermined significance on cytologic smear of cervix (ASC-US) (principal); Z32.02 Encounter for pregnancy test, result negative
CPT/HCPCS: 57454

== ENCOUNTER 2024-07-15 09:28 | Outpatient (REF) | payer OTHER, SELFPAY | END 2024-07-15 09:29 | disposition home or self-care (01) | LOC: HO.LNP 09:28 | PROVIDERS: PCP Nurse Practitioner Family; Visit Provider Obstetrics & Gynecology | DX: R87.610 Atypical squamous cells of undetermined significance on cytologic smear of cervix (ASC-US) (principal); Z32.02 Encounter for pregnancy test, result negative | CPT/HCPCS: 57454; 81025; 88305 ==

== ENCOUNTER 2024-09-05 08:08 | Outpatient (AMB) | payer OTHER, SELFPAY ==
--- NOTE | 2024-09-05 08:08 | A.OFFVIS_ITS ---
Intake Visit Reasons: colpo results Allergies environmental allergies Allergy (Unknown, Verified 07/15/24 09:46) Itchy Eyes HPI Comments Details: The patient is scheduled a telehealth visit post colpo for follow-up. The patient is doing well with no complaints. The pathology showed the following: A. Endocervix, curettage: Superficial strips of endocervical epithelium within normal limits. B. Cervix, 1 o'clock, biopsy: Squamous and endocervical epithelium within normal limits; mucoinflammatory material; no atypia identified. C. Cervix, 6 o'clock, biopsy: - Few fragments of endocervical epithelium within normal limits; mucoinflammatory material. - No squamous epithelium identified. D. Cervix, 7 o'clock, biopsy: - Endocervical mucosa within normal limits. - No squamous epithelium identified. E. Cervix, 11 o'clock, biopsy: - Inflamed endocervical mucosa with reactive changes; otherwise within normal limits. - No squamous epithelium identified. F. Cervix, 12 o'clock, biopsy: Inflamed cervical transformation zone mucosa with reactive changes. [facility] Medical History (Updated 09/05/24 @ 08:10 by Sb Ellison MD) ASCUS with positive high risk HPV cervical Hx of retinal detachment Surgical History Hx of eye surgery Hx of cholecystectomy Hx of tonsillectomy History of bilateral tubal ligation Family History Father HTN (hypertension) Mental health disorder Mother HTN (hypertension) Mental health disorder Paternal Uncle Substance use disorder Sister Mental health disorder Social History Housing: Apartment Alcohol intake: current Alcohol intake frequency: a few times a week Patient Tobacco Use Status: Current someday Tobacco user Tobacco use type: Cigarette e-Cigarette/Vaping Use: Currently Using Second Hand Smoke Exposure: No Substance Use Type: Marijuana service: No Current occupational status: employed Current occupation: [employer] Current occupational exposures/hazards: No Gender identity: Female Cognitive needs: No Hearing needs: No Vision needs: No Female Reproductive History Menstrual Age of Menarche: 14 Review of Systems Const All systems reviewed & are unremarkable except as noted in HPI and below Reports as per HPI and Reports no additional complaints GI Reports no additional complaints Reports no additional complaints Telehealth Telehealth [facility]health [facility] Location of provider rendering services: practice address Location of patient: address on file Patient Identification confirmed using: Name, : Yes Telehealth method: voice only Patient verbally consented to treatment: Yes Patient verbally consented to billing insurance company: Yes Patient informed of any privacy concerns related to visit: Yes Minutes spent on Phone/Video with Pt.: 2 Assessment & Plan Assessment & Plan (1) ASCUS of cervix with negative high risk HPV: Code(s): R87.610 - Atypical squamous cells of undetermined significance on cytologic smear of cervix (ASC-US) Category: Medical Plan: Discussed with the patient the pathology results of the colposcopy biopsies & endocervical curettage ( negative). Discussed with the patient the sensitivity specificity, positive and negative predictive value in detecting cervical cancer in addition discussed the regression, persistence and progression rates. Recommended co-testing in 12 months, if cytology and or HPV are abnormal will proceed was colposcopy biopsy and endocervical curettage. Instructions given to the patient to schedule a co test appointment in 1 year. All questions answered the patient verbalized understanding. I spent a total of 20 minutes reviewing the chart, talking to the patient via video and documenting in the medical record. Coding Level of Care Code Tele Est Pt Level 3 (42145) Diagnoses ASCUS of cervix with negative high risk HPV R87.610
== END 2024-09-05 08:16 | disposition home or self-care (01) ==
LOC: HO.HWS 08:08
PROVIDERS: PCP Nurse Practitioner Family; Visit Provider Obstetrics & Gynecology
DX: R87.610 Atypical squamous cells of undetermined significance on cytologic smear of cervix (ASC-US) (principal)
CPT/HCPCS: 99213

== ENCOUNTER 2024-09-16 09:01 | Outpatient (AMB) | payer OTHER, SELFPAY ==
--- NOTE | 2024-09-16 09:04 | A.OFFVIS_ITS ---
Intake Visit Reasons: Questions regarding reversal tubal ligation Allergies environmental allergies Allergy (Unknown, Verified 09/16/24 09:06) Itchy Eyes Medication List - Last Reconciled 09/16/24 by Cathy Trinidad CNM amlodipine-benazepril 2.5-10 mg 1 cap PO DAILY blood pressure test kit-large (Quick Response BP Monitor-Large Cuff kit) twice a week cyclobenzaprine 10 mg PO TID PRN ferrous sulfate 324 mg PO DAILY lidocaine 5% 1 patch topical DAILY Post menopausal: No Patient : No HPI HPI Questions regarding reversal tubal ligation: Details: This is a tele visit to discuss patient questions about getting her tubal ligation reversed. She had a done in 2014. It was done at [facility] she started care and had her 1st daughter it [facility] but she got transfer in another due to severe preeclampsia very early in the with demise related to the preeclampsia she was induced. She had had pregnancies after that the were okay but she was at [facility] and she was carefully managed. She said she is actually not taking the blood pressure medicine that she was on and that is listed in the chart and she said she told her doctor she was not going to take it but she was supposed to go back and have another appointment to switch it to something else and she did not get to go to that appointment. She has a new partner and he does not have any kids so she is enquiring about tubal ligation reversal.. 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 she does not get enough sleep. I reviewed the last several blood pressures that were taken within our system and they were all in the elevated range. I reviewed with her the risks and the challenges of getting tubal ligation reversal but more importantly that she needs to have an open discussion with providers at [facility] about the risks to her health in a health of a fetus with her hypertension and the risks of preeclampsia again. As told her it needs to be a very up front discussion and it would best to have it at [facility] where they have access to her records very clearly within the system. I also reminded her she could come here and sign for records so that they have access to any of her abnormal Paps. She just had a colposcopy biopsy Dr. Ellison and reviewed those results on September 05 with him and the plan is to repeat next year and follow through. Also discussed that tubal ligation reversal is not usually paid for and that additionally was it is also expensive is IVF which sometimes women consider. But in her case the most important consideration honestly needs to be the risk of preeclampsia in her the face of her hypertension. I suggested that in order of things to do today 1. Taken anselmo in a darkened room number to call her primary and reschedule that appointment to rediscuss hypertensive medications and be honest about that she is considering a so that consideration can be given to what would be safe in a or for planning and 3. Call [facility] and make an appointment to have a full discussion about the risks tubal ligation reversal in the face of her history hypertension and preeclampsia with (very) severe features. FORMERLY [facility], [facility] Medical History (Updated 09/16/24 @ 10:04 by Cathy Trinidad CNM) ASCUS with positive high risk HPV cervical Hx of retinal detachment Surgical History Hx of eye surgery Hx of cholecystectomy Hx of tonsillectomy History of bilateral tubal ligation Family History Father HTN (hypertension) Mental health disorder Mother HTN (hypertension) Mental health disorder Paternal Uncle Substance use disorder Sister Mental health disorder Social History Housing: Apartment Alcohol intake: current Alcohol intake frequency: a few times a week Patient Tobacco Use Status: Current someday Tobacco user Tobacco use type: Cigarette e-Cigarette/Vaping Use: Currently Using Second Hand Smoke Exposure: No Substance Use Type: Marijuana Patient : No service: No Current occupational status: employed Current occupation: [employer] Current occupational exposures/hazards: No Gender identity: Female Cognitive needs: No Hearing needs: No Vision needs: No Female Reproductive History Menstrual Age of Menarche: 14 Total pregnancies: 5 Full term: 4 Date of last pap smear: 05/31/24 (abnormal) History of abnormal pap smear: Yes Telehealth Telehealth [facility]health [facility] Location of provider rendering services: practice address Location of patient: address on file Patient Identification confirmed using: Name, : Yes Telehealth method: video Patient verbally consented to treatment: Yes Patient verbally consented to billing insurance company: Yes Patient informed of any privacy concerns related to visit: Yes Minutes spent on Phone/Video with Pt.: 25 (5 cr/25 speaking w pt/10 charting=40) Assessment & Plan Assessment & Plan (1) History of bilateral tubal ligation: Code(s): Z98.51 - Tubal ligation status Category: Surgical (2) Hx of abnormal cervical Pap smear: Comment: 04/16/21 pap= neg / neg hpv; 09/26/2022 ASCUS, HPV is positive- needs colpo.... Code(s): Z87.42 - Personal history of other diseases of the female genital tract Category: Medical (3) ASCUS with positive high risk HPV cervical: Comment: 04/25 co testing negative 09/25 ascus HPV positive, colpo biopsy ECC negative 05/29 ascus HPV negative, colpo biopsy ECC negative Code(s): R87.610 - Atypical squamous cells of undetermined significance on cytologic smear of cervix (ASC-US); R87.810 - Cervical high risk human papillomavirus (HPV) DNA test positive Category: Medical (4) HTN (hypertension): Code(s): I10 - Essential (primary) hypertension Category: Medical (5) Obesity (BMI 30-39.9): Code(s): E66.9 - Obesity, unspecified Category: Medical (6) History of severe pre-eclampsia: Code(s): Z87.59 - Personal history of other complications of , childbirth and the puerperium Category: Medical (7) Patient desires : Code(s): Z31.9 - Encounter for procreative management, unspecified Category: Medical Plan This is a tele visit to discuss patient questions about getting her tubal ligation reversed. She had a done in 2014. It was done at [facility] she started care and had her 1st daughter it [facility] but she got transfer in another due to severe preeclampsia very early in the with demise related to the preeclampsia she was induced. She had had pregnancies after that the were okay but she was at [facility] and she was carefully managed. She said she is actually not taking the blood pressure medicine that she was on and that is listed in the chart and she said she told her doctor she was not going to take it but she was supposed to go back and have another appointment to switch it to something else and she did not get to go to that appointment. She has a new partner and he does not have any kids so she is enquiring about tubal ligation reversal.. 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 she does not get enough sleep. I reviewed the last several blood pressures that were taken within our system and they were all in the elevated range. I reviewed with her the risks and the challenges of getting tubal ligation reversal but more importantly that she needs to have an open discussion with providers at [facility] about the risks to her health in a health of a fetus with her hypertension and the risks of preeclampsia again. As told her it needs to be a very up front discussion and it would best to have it at [facility] where they have access to her records very clearly within the system. I also reminded her she could come here and sign for records so that they have access to any of her abnormal Paps. She just had a colposcopy biopsy Dr. Ellison and reviewed those results on September 05 with him and the plan is to repeat next year and follow through. Also discussed that tubal ligation reversal is not usually paid for and that additionally was it is also expensive is IVF which sometimes women consider. But in her case the most important consideration honestly needs to be the risk of preeclampsia in her the face of her hypertension. I suggested that in order of things to do today 1. Taken anselmo in a darkened room number to call her primaryand reschedule that appointment to rediscuss hypertensive medications and be honest about that she is considering a so that consideration can be given to what would be safe in a or for planning and 3. Call [facility] and make an appointment to have a full discussion about the risks tubal ligation reversal in the face of her history hypertension and preeclampsia with (very) severe features. Patient to see her PCC about her blood pressure Patient to sign for records if she is going to have consultation at [facility] Coding Level of Care Code Tele Est Pt Level 3 (87040) Diagnoses History of bilateral tubal ligation Z98.51 Hx of abnormal cervical Pap smear Z87.42 ASCUS with positive high risk HPV cervical R87.610; R87.810 HTN (hypertension) I10 Obesity (BMI 30-39.9) E66.9 History of severe pre-eclampsia Z87.59 Patient desires Z31.9 Time Spent (min) 40
== END 2024-09-16 10:43 | disposition home or self-care (01) ==
LOC: HO.HWS 09:01
PROVIDERS: PCP Nurse Practitioner Family; Visit Provider Advanced Practice Midwife
DX: R87.610 Atypical squamous cells of undetermined significance on cytologic smear of cervix (ASC-US) (principal); R87.810 Cervical high risk human papillomavirus (HPV) DNA test positive; Z31.9 Encounter for procreative management, unspecified; I10 Essential (primary) hypertension; E66.9 Obesity, unspecified; Z87.59 Personal history of other complications of pregnancy, childbirth and the puerperium
CPT/HCPCS: 99213

== ENCOUNTER → 2024-09-16 09:01 | Outpatient (BNVA) | payer OTHER, SELFPAY | PROVIDERS: PCP Nurse Practitioner Family; Visit Provider Advanced Practice Midwife ==

== ENCOUNTER 2025-03-22 14:44 | Emergency (ER) | payer OTHER, SELFPAY ==
--- NOTE | ~2025-03-22 | XR_ITS ---
EXAMINATION: XR CHEST CLINICAL INFORMATION: chest pain COMPARISON: February 16, 2022 TECHNIQUE: Frontal view of the chest was obtained. FINDINGS: No significant abnormality is noted involving the heart, lungs, mediastinum, bony thorax or soft tissues. XR/XR chest 1V IMPRESSION: No acute disease Electronically signed by: Robby Wheeler MD 03/22/2025 04:10 PM EDT RP
--- NOTE | ~2025-03-22 | CT_ITS ---
CLINICAL HISTORY: sudden onset of headache CT Head without contrast. CT angiography head and neck with contrast. 3D Postprocessing. Comparison: CT/SR - CT HEAD WITHOUT IV CONTRAST - 05/24/24 12:00 EST Findings: HEAD CT: No intra-axial mass, midline shift, hydrocephalus, or acute hemorrhage. No significant atrophy-like change or white matter disease. There is no sinus or mastoid fluid. The orbits are unremarkable. No acute skull fracture. HEAD AND NECK CTA: Aortic arch and cervical great vessels are patent. Intracranial arteries are patent. No aneurysm or occlusion. No abnormal intracranial enhancement. The visualized thyroid gland is unremarkable. No cervical mass or fluid collection. Lung apices clear. No acute fracture. IMPRESSION: 1. No acute intracranial findings on head CT. 2. Patent head and neck CTA. This document has been electronically signed by: Nelia Melgar MD on 03/22/2025 18:22:02
--- NOTE | 2025-03-22 14:45 | ECG_ITS ---
Test Reason : CP Blood Pressure : */* mmHG Vent. Rate : 91 BPM Atrial Rate : 91 BPM P-R Int : 110 ms QRS Dur : 88 ms QT Int : 356 ms P-R-T Axes : 16 13 9 degrees QTcB Int : 437 ms Sinus rhythm with short NE Minimal voltage criteria for LVH, may be normal variant ( R in aVL ) Borderline ECG When compared with ECG of 16-Feb-2022 09:54, No significant change was found Referred By: Generic ED Physician Electronically Signed By: NORMA RAE
[2025-03-22 15:06] VITALS: BP 161/99; PULSE 82; RESP 16; TEMP 36.4; O2SAT 98; BMI 34.8
--- NOTE | 2025-03-22 15:12 | ED.GENADULT ---
HPI - General Adult General Chief complaint: Headache Stated complaint: CP, ear issues, headache Time Seen by Provider: 03/22/25 15:44 Source: patient Mode of arrival: ambulatory Limitations: no limitations History of Present Illness ED Provider: DR. William HPI narrative: 39-year-old female came in for evaluation of multiple symptoms started 2 days ago after having argument with her boyfriend. Verbal argument with her boyfriend patient was yelling when shortly after started to have sudden onset of headache admitted is not the worst headache in her life patient had history of migraine in the past, then started to have bilateral ear pain left more than right then noticed she has been bleeding out of her left ear. Patient also is complaining of mid chest pain with no radiation, no other associated symptoms of shortness of breath, no fever, no chills. Related Data Previous Rx's ?Medication ?Instructions ?Recorded ferrous sulfate 324 mg (65 mg 324 mg PO DAILY #30 tabs 07/15/23 iron) tablet,delayed release blood pressure test kit-large #1 ea 07/28/23 (Quick Response BP Monitor-Large Cuff kit) amlodipine 2.5 mg-benazepril 10 mg 1 cap PO DAILY #30 caps 11/08/23 capsule cyclobenzaprine 10 mg tablet 10 mg PO TID PRN muscle spasm #14 05/24/24 tabs lidocaine 5 % topical patch 1 patch topical DAILY #15 ea 05/24/24 amoxicillin 875 mg-potassium 1 tab PO BID #14 tabs 03/22/25 clavulanate 125 mg tablet Allergies Allergy/AdvReac Type Severity Reaction Status Date / Time environmental allergies Allergy Unknown Itchy Eyes Verified 03/22/25 15:10 Review of Systems Review of Systems: All other systems are reviewed and are negative Constitutional: Reports as per HPI and Reports no additional constitutional complaints Eyes: Reports as per HPI and Reports no additional eye complaints Reports system reviewed and no additional complaints, except as documented Cardiovascular: Reports as per HPI and Reports no additional cardiovascular complaints Respiratory: Reports as per HPI and Reports no additional respiratory complaints Gastrointestinal: Reports as per HPI and Reports no additional gastrointestinal complaints Genitourinary: Reports no additional female genitourinary complaints Musculoskeletal: Reports no additional musculoskeletal complaints Skin/Breast: Reports system reviewed and no additional complaints, except as docu Psychiatric: Reports no additional psychiatric complaints Endocrine: Reports no additional endocrine complaints Hematologic/Lymphatic: Reports no additional hematologic/lymphatic complaints Allergic/Immunologic: Reports no additional allergic/immunologic complaints Reports system reviewed and no additional complaints, except as documented and Reports Abnormal speech present [facility] Past Medical History Medical History ASCUS with positive high risk HPV cervical Hx of retinal detachment Surgical History Hx of eye surgery Hx of cholecystectomy Hx of tonsillectomy History of bilateral tubal ligation Family History Family History Father HTN (hypertension) Mental health disorder Mother HTN (hypertension) Mental health disorder Paternal Uncle Substance use disorder Sister Mental health disorder Social History Social History Housing: Apartment Alcohol intake: current Alcohol intake frequency: a few times a week Patient Tobacco Use Status: Current someday Tobacco user Tobacco use type: Cigarette Smoked in Last 30 Days: Yes e-Cigarette/Vaping Use: Currently Using Second Hand Smoke Exposure: No Use of substances other than those prescribed or required for medical reasons: Yes Substance Use Type: Marijuana Substance Use Frequency: Chronic Longstanding Advance Directives: No Advance Directives Information Provided: Yes service: No Current occupational status: employed Current occupation: [employer] Current occupational exposures/hazards: No Gender identity: Female Cognitive needs: No Hearing needs: No Vision needs: No Physical Exam ED Vital Signs: Vital Signs - 24 hr 03/22/25 15:06 03/22/25 18:47 03/22/25 18:51 Temperature 97.6 F 98.4 F 98.4 F Pulse Rate 82 69 69 Respiratory Rate 16 20 20 Blood Pressure 161/99 H 151/99 H 151/99 H Pulse Oximetry 98 100 100 Oxygen Delivery Method Room Air Room Air Room Air BMI result Body Mass Index 34.8 Vital signs have been reviewed and appear to be correct. Blood pressure elevated. Heart rate normal. Respiratory rate normal. Temperature normal. Oxygen saturation normal. Appearance: Alert. Oriented X3. No acute distress. Head: Normal external exam. Normocephalic. Atraumatic. No Kenney signs noted. No raccoon eyes noted Eyes: PERRLA. EOMI. Conjunctiva and sclera normal. Eyelids normal. ENT: Left TM is perforated, dry blood in the external auditory canal.Pharynx normal. Uvula midline. Moist mucous membranes. No trismus noted. No drooling noted. No muffled voice noted. Neck: Normal inspection. Neck supple. FROM. No adenopathy. Thyroid Normal. No meningeal signs. No neck mass noted. CVS: Normal heart rate and rhythm. Heart sound normal. No murmurs noted. Pulses normal throughout. Respiratory: No respiratory distress. Painless inspiration. Breath sounds normal. No wheezes/rales/rhonchi noted. Chest nontender. No accessory muscle usage noted or decreased air movement noted. Abdomen: Soft and nontender. Bowel sounds normal in all 4 quadrants. No distention noted. No organomegaly noted. No visible injury noted. Back: No CVA tenderness. Full range of motion noted. Skin: Skin warm and dry. Normal skin color. Normal skin turgor. No rashes/lesions/lacerations noted. Extremities: No lower extremity edema. Extremities exhibit normal range of motion. Extremities nontender. Neuro: Oriented X 3. Cranial nerve exam: II-XII are grossly intact No motor deficit. No sensory deficit. Reflexes normal. Course Course Course Narrative: RmE: 39 yold female presents to the ED for chest pain, bilateral ear pain, and headache. patient states bleeding from both ears without trauma or swimming. exam positive for dried blood in ears. labs, imaging ordered. Reevaluation(s) Reevaluation #1: bad headache started after having a verbal argument with her boyfriend 2 days ago followed by bilateral ear pain left more than right and blood from the left ear. Headache has improved patient feels better tolerating p.o. intake, patient had CT angio of the head and neck shows no intracranial aneurysm and no indication for subarachnoid hemorrhage, improvement of symptoms making intracranial bleed is unlikely. Left TM perforation will start on Augmentin and patient to follow-up with ENT. Time: 18:44 Medications Administered Discontinued Medications Generic Name Dose Route Start Last Admin Trade Name Freq PRN Reason Stop Dose Admin Amoxicillin/Clavulanate Potassium 875 mg 03/22/25 15:58 03/22/25 16:47 Amoxicillin/Potassium Clav 875 Mg Tablet PO 03/22/25 15:59 875 mg ONCE ONE Administration Iohexol 100 ml 03/22/25 17:04 03/22/25 17:05 Iohexol 350 Mg/Ml 100 Ml Infus..Btl IV 03/22/25 17:05 70 ml ONCE ONE Administration Medical Decision Making Differential Diagnosis Differential Diagnoses: The differential diagnosis associated with the presentation includes ( Migraine headache, SAH, cerebral aneurysm, otitis externa, perforated ear drum, otitis media.) Admission/Observation Consideration of admission/observation: Escalation of care including admission/observation considered Lab Data MDM Lab Attestation statement: I reviewed the patient's lab results. 03/22/25 15:26 03/22/25 15:26 Labs: Lab Results 03/22/25 03/22/25 Range/Units 15: 16:25 WBC 10.5 (4.8-10.8) X10*3/uL RBC 4.99 (4.20-5.50) X10*6/uL Hgb 12.3 (12.0-16.0) g/dl Hct 37.5 (37.0-47.0) % MCV 75.2 L (80.0-98.0) fL MCH 24.6 L (27.0-33.0) pg MCHC 32.8 (31.0-35.0) g/dl RDW 16.8 H (11.0-16.0) % Plt Count 385 (160-400) X10*3/uL MPV 9.2 L (9.4-12.3) fL Immature Gran % (Auto) 0.3 (0.0-0.4) % Neut % (Auto) 62.5 (45-73) % Lymph % (Auto) 29.3 (20-40) % [place] % (Auto) 6.9 (2-11) % Eos % (Auto) 0.4 (0-4) % Baso % (Auto) 0.6 (0-2) % Lymph # (Auto) 3.1 (1.2-4.9) X10*3/uL [place] # (Auto) 0.7 (0.1-1.2) X10*3/uL Eos # (Auto) 0.0 (0.0-0.4) X10*3/uL Baso # (Auto) 0.1 (0.0-0.2) X10*3/uL Abs Immat Gran (auto) 0.03 (0.00-0.03) X10*3/uL Absolute Neuts (auto) 6.6 (2.0-8.3) x10*3/uL Absolute Nucleated RBC 0.000 (0.0-0.012) X10*3/uL Nucleated RBC % (auto) 0.0 (0.0-0.2) /100WBC PT 10.8 L (10.9-12.4) SEC INR 0.9 (0.9-1.1) APTT 29.2 (26.7-34.1) SEC Sodium 139 (135-145) mmol/L Potassium 4.3 D (3.3-5.1) mmol/L Chloride 107 (96-108) mmol/L Carbon Dioxide 27 (22-29) mmol/L Anion Gap 9 L (12-20) BUN 5 L (9-16) mg/dL Creatinine 0.61 (0.5-1.4) mg/dL Estim Creat Clear Calc 143.8 Estimated GFR > 60 Random Glucose 96 (60-115) mg/dL Calcium 8.9 D (8.4-10.2) mg/dL Total Bilirubin 0.2 (0.0-1.0) mg/dL AST 19 (5-31) U/L ALT 17 (0-31) U/L Alkaline Phosphatase 70 (39-117) U/L Troponin I High Sens < 2.7 (<3.5-17.0) ng/L B-Natriuretic Peptide < 10 (<100) pg/mL Total Protein 7.2 (6.5-8.0) g/dL Albumin 4.6 (3.5-5.0) g/dL Beta HCG, Quant < 2 mIU/mL Urine Color Yellow Urine Appearance Clear Urine pH 6.5 (5.0-9.0) Ur Specific [place] <= 1.005 (1.005-1.025) Urine Protein Negative (Neg-Trace) mg/dL Urine Glucose (UA) Negative (Negative) mg/dL Urine Ketones Negative (Negative) mg/dL Urine Blood Negative (Negative) Urine Nitrite Negative (Negative) Ur Leukocyte Esterase Moderate (2+) H (Negative) Urine RBC 0-2 (0-2) /HPF Urine WBC 6-10 H (0-5) /HPF Ur Squamous Epith Cells 6-10 (0-2) /HPF Urine Bacteria 1+ (None Seen) Hyaline Casts 0-2 (0-2) /LPF COVID-19 (CHRISTA) Negative (Negative) COVID-19 Clin Com See Note Influenza Type A (LIBAN) Negative (Negative) Influenza Type B (LIBAN) Negative (Negative) Influenza A & B Note See Note Independent Interpretation I performed an independent interpretation of an: CT Scan ( CTA head and neck: No SAH, no cerebral aneurysm.) Radiology Impression Discussion of test interpretation with radiology: I have reviewed the radiologist's reading. Discharge Plan Discharge Clinical Impression: Headache, migraine, Perforated eardrum Patient Disposition: Home, Self-Care Instructions: Ruptured Eardrum (ED), Migraine Headache (ED) Prescriptions: New amoxicillin-pot clavulanate 875-125 mg tablet 1 tab PO BID Qty: 14 0RF No Action ferrous sulfate 324 mg (65 mg iron) tablet,delayed release (DR/EC) 324 mg PO DAILY Qty: 30 2RF amlodipine-benazepril 2.5-10 mg capsule 1 cap PO DAILY Qty: 30 2RF cyclobenzaprine 10 mg tablet 10 mg PO TID PRN (Reason: muscle spasm) Qty: 14 0RF lidocaine 5 % adhesive patch,medicated 1 patch topical DAILY Qty: 15 0RF Rx Instructions: leave on most painful area for up to 12 hrs (DME) blood pressure test kit-large [Quick Response BP Monitor-Larg] Kit See Rx Instructions .Route Qty: 1 0RF Rx Instructions: twice a week Referrals: Edd Messer [Physician, Ear, Nose, Throat] Interventions: ED Discharge Assessment Last Done: 03/22/25 18:51 Discharge Date/Time: 03/22/25 18:55 Print Language: Faroese
[2025-03-22 15:32] LABS: MANUAL DIFF FLAG NO
[2025-03-22 15:34] LABS: Hematocrit 37.5 % (37.0-47.0); Hemoglobin 12.3 g/dl (12.0-16.0); Imm Gran Abs Auto 0.03 X10*3/uL (0.00-0.03); Imm Gran Pct Auto 0.3 % (0.0-0.4); Lymphocytes Absolute Auto 3.1 X10*3/uL (1.2-4.9); Mean Corpuscular HGB Conc 32.8 g/dl (31.0-35.0); Mean Corpuscular Hemoglobin 24.6 pg (27.0-33.0); Mean Corpuscular Volume 75.2 fL (80.0-98.0); NRBC Abs Auto 0.000 X10*3/uL (0.0-0.012); NRBC Pct Auto 0.0 /100WBC (0.0-0.2); Platelet Count 385 X10*3/uL (160-400); Red Blood Count 4.99 X10*6/uL (4.20-5.50); White Blood Count 10.5 X10*3/uL (4.8-10.8)
[2025-03-22 15:49] LABS: Alanine Aminotransferase 17 U/L (0-31); Albumin Level 4.6 g/dL (3.5-5.0); Alkaline Phosphatase 70 U/L (39-117); Anion Gap 9 (12-20); Aspartate Amino Transferase 19 U/L (5-31); Blood Urea Nitrogen 5 mg/dL (9-16); Calcium 8.9 mg/dL (8.4-10.2); Carbon Dioxide 27 mmol/L (22-29); Chloride 107 mmol/L (96-108); Creatinine Clr Calc Pharmacy 143.8; Estimated Glomerular Filt Rate > 60; INTERNATIONAL NORM RATIO 0.9 (0.9-1.1); Potassium 4.3 mmol/L (3.3-5.1); Prothrombin Time 10.8 SEC (10.9-12.4); Sodium 139 mmol/L (135-145); Total Protein 7.2 g/dL (6.5-8.0)
[2025-03-22 15:51] LABS: Partial Thromboplastin Time 29.2 SEC (26.7-34.1)
[2025-03-22 15:56] LABS: IDNOW Serial# 55D5AD1C; Influenza B2 Negative (Negative)
[2025-03-22 15:57] LABS: COVID-19 Test Negative (Negative); IDNOW Serial# 58CA691E
[2025-03-22 16:00] LABS: Troponin-I High Sensitivity < 2.7 ng/L (<3.5-17.0)
[2025-03-22 16:34] LABS: Appearance Urine Clear; Glucose Urine UA Negative (Negative); PH 6.5 (5.0-9.0); Specific Gravity - Urine <= 1.005 (1.005-1.025); UMIC TRIGGER UACC YES
[2025-03-22 16:37] LABS: UACC Culture Trigger YES
[2025-03-22] MEDS: iohexoL 350 MG/ML 100 ML INFUS..BTL IV (17:05)
[2025-03-22 17:56] LABS: B Type Natriuretic Peptide < 10 pg/mL (<100)
[2025-03-22 18:47] VITALS: BP 151/99; PULSE 69; RESP 20; TEMP 36.9; O2SAT 100
[2025-03-22 18:51] VITALS: BP 151/99; PULSE 69; RESP 20; TEMP 36.9; O2SAT 100
== END 2025-03-22 18:55 | disposition home or self-care (01) ==
PROVIDERS: Physician Assistant; Emergency Provider Emergency Medicine
DX: R51.9 Headache, unspecified (principal); R07.89 Other chest pain; H92.03 Otalgia, bilateral; H72.92 Unspecified perforation of tympanic membrane, left ear; R06.02 Shortness of breath; F17.210 Nicotine dependence, cigarettes, uncomplicated; Z11.52 Encounter for screening for COVID-19; Z79.899 Other long term (current) drug therapy
CPT/HCPCS: 70496; 70498; 71045; 80053; 81001; 83880; 84484; 84702; 85025; 85610; 85730; 87086; 87502; 87635; 93005; 99284; Q9967

== ENCOUNTER → 2025-03-22 14:45 | Outpatient (BNV) | payer OTHER, SELFPAY | PROVIDERS: Emergency Provider Emergency Medicine; Visit Provider Internal Medicine | DX: R07.9 Chest pain, unspecified (principal) | CPT/HCPCS: 93010 ==

== ENCOUNTER → 2025-03-22 15:09 | Outpatient (BNV) | payer OTHER, SELFPAY | PROVIDERS: Emergency Provider Emergency Medicine; Visit Provider Radiology Diagnostic Radiology | DX: R51.9 Headache, unspecified (principal); R07.89 Other chest pain | CPT/HCPCS: 70496; 70498; 71045 ==

== ENCOUNTER 2025-06-13 12:17 | Outpatient (AMB) | payer OTHER, SELFPAY ==
[2025-06-13 12:32] VITALS: BP 126/82; PULSE 81; RESP 17; TEMP 37.3; O2SAT 99; BMI 37.3
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
== END 2025-06-13 13:00 | disposition home or self-care (01) ==
LOC: HO.HMCC 12:18
PROVIDERS: PCP Nurse Practitioner Family; Visit Provider Nurse Practitioner Family
DX: Z00.00 Encounter for general adult medical examination without abnormal findings (principal); F17.210 Nicotine dependence, cigarettes, uncomplicated; Z11.3 Encounter for screening for infections with a predominantly sexual mode of transmission

== ENCOUNTER → 2025-06-13 12:17 | Outpatient (BNVA) | payer OTHER, SELFPAY | PROVIDERS: PCP Nurse Practitioner Family; Visit Provider Nurse Practitioner Family | DX: Z11.3 Encounter for screening for infections with a predominantly sexual mode of transmission (principal); Z00.00 Encounter for general adult medical examination without abnormal findings; F17.210 Nicotine dependence, cigarettes, uncomplicated | CPT/HCPCS: 96127; 99395 ==

== ENCOUNTER 2025-06-14 08:50 | Outpatient (REF) | payer OTHER, SELFPAY ==
[2025-06-14 09:15] LABS: MANUAL DIFF FLAG NO
[2025-06-14 10:32] LABS: Hematocrit 38.7 % (37.0-47.0); Hemoglobin 12.2 g/dl (12.0-16.0); Imm Gran Abs Auto 0.03 X10*3/uL (0.00-0.03); Imm Gran Pct Auto 0.4 % (0.0-0.4); Lymphocytes Absolute Auto 2.9 X10*3/uL (1.2-4.9); Mean Corpuscular HGB Conc 31.5 g/dl (31.0-35.0); Mean Corpuscular Hemoglobin 24.3 pg (27.0-33.0); Mean Corpuscular Volume 76.9 fL (80.0-98.0); NRBC Abs Auto 0.000 X10*3/uL (0.0-0.012); NRBC Pct Auto 0.0 /100WBC (0.0-0.2); Platelet Count 364 X10*3/uL (160-400); Red Blood Count 5.03 X10*6/uL (4.20-5.50); White Blood Count 8.1 X10*3/uL (4.8-10.8)
[2025-06-14 11:00] LABS: Appearance Urine Cloudy; Glucose Urine UA Negative (Negative); PH 8.0 (5.0-9.0); Specific Gravity - Urine 1.025 (1.005-1.025); UMIC TRIGGER UACC YES
[2025-06-14 11:33] LABS: Alanine Aminotransferase 24 U/L (0-31); Albumin Level 4.5 g/dL (3.5-5.0); Alkaline Phosphatase 70 U/L (39-117); Anion Gap 9 (12-20); Aspartate Amino Transferase 23 U/L (5-31); Blood Urea Nitrogen 10 mg/dL (9-16); Calcium 8.9 mg/dL (8.4-10.2); Carbon Dioxide 26 mmol/L (22-29); Chloride 110 mmol/L (96-108); Cholesterol 187 mg/dL (<200); Estimated Glomerular Filt Rate > 60; HDL Cholesterol 70 mg/dL (>40); Potassium 4.2 mmol/L (3.3-5.1); Sodium 141 mmol/L (135-145); Total Protein 7.0 g/dL (6.5-8.0); Triglycerides 79 mg/dL (<150)
[2025-06-14 11:34] LABS: Syphilis Screen Nonreactive (Nonreactive)
[2025-06-14 12:24] LABS: HBS Num1 13.89 mIU/mL (0-7.99); HBc Num1 0.04 S/CO (0.00-0.79); HBsAGNum1 0.30 S/CO (0.00-0.99); HIV Num 1 0.05 S/CO (0.00-0.99); Hepatitis A Antibody IgM 0.22 Index (0-0.79); Hepatitis B Surface Antigen Negative (Negative); ~HepC Num1 0.11 S/CO (0.00-0.79); ~Hepatitis A Antibody IgM Nonreactive (Nonreactive); ~Hepatitis B Surface Antibody REACTIVE (Nonreactive); ~Hepatitis C Antibody Nonreactive (Nonreactive)
[2025-06-14 12:25] LABS: CT PCR Urine NOT DETECTED (Not Detect.); NG PCR Urine NOT DETECTED (Not Detect.)
== END 2025-06-14 08:51 | disposition home or self-care (01) ==
LOC: HO.LAB 08:50
PROVIDERS: PCP Nurse Practitioner Family; Visit Provider Nurse Practitioner Family
DX: Z20.2 Contact with and (suspected) exposure to infections with a predominantly sexual mode of transmission (principal); I10 Essential (primary) hypertension
CPT/HCPCS: 80053; 80061; 81001; 81003; 84443; 85025; 86704; 86706; 86709; 86780; 86803; 87340; 87389; 87491; 87591